=== PATIENT | female | born 1975 | race Caucasian/White ===

== ENCOUNTER 2016-12-01 04:37 | Inpatient (IN) | payer MEDICAID, OTHER ==
[~2016-12-01] VITALS: Ht 157.5 cm; Wt 49.0 kg
[2016-12-01] MEDS ORDERED: No home meds (12:03)
[2016-12-01] MEDS ORDERED: OMEG-38 PO (12:09)
[2016-12-01] MEDS ORDERED: IRON1TAB97 PO (12:09)
--- NOTE | 2016-12-01 14:02 | NUR ---
Nursing Admission Note: Patient arrived on unit at 1115 escorted by EMS and security. Ambulated from the gurney onto the unit with a steady gait. HENRIQUE'd 72 hour hold yesterday evening as gravely disabled and a danger to self in [place] at [facility]. C/O hearing voices most of the time and they had been increasing since her relationship with her boyfriend ended 3 weeks ago. She then moved from [place] to [place] looking for a job on a [place]. Has been staying in the prison. States "the voices are very critical and are keeping me from getting the job." Patient brought herself to the hospital because of SI and a plan to jump into the ocean or slit her wrists per long-term paperwork. Cooperative with admission process. Given a tour of the unit. Ate well at lunch. Pleasant with staff. Will monitor mood and behavior.
[2016-12-01] MEDS ORDERED: Magnesium Hydroxide 10 mL Oral Concentration PO PRN (14:15)
[2016-12-01] MEDS ORDERED: Benzocaine-Menthol Lozenge 2/Pkg PO PRN (14:15)
[2016-12-01] MEDS ORDERED: Alum-Mag Hydrox-Simeth 30 mL Suspension PO PRN (14:15)
[2016-12-01] MEDS: LORazepam 1 mg Tablet PO PRN ×2 (14:22→18:28)
[2016-12-01] MEDS ORDERED: Influenza (Adult) Vaccine 0.5 mL Syringe IM ONE (14:55)
--- NOTE | 2016-12-01 18:29 | NUR ---
Nurses PRN Patient requested and received Ativan 1mg for increasing anxiety and wanting to rest,will assess response.
--- NOTE | 2016-12-01 18:31 | NUR ---
[facility] Day Shift Pt admitted to the unit at approx 11:15. Pt completed the admission process without incident. Pt appears to have acclimated to the unit comfortably. Pt spends most of the shift reading/resting in her room, interacting with peers or drawing/writing in the dining room, and participating in unit activities. Pt is pleasant and appropriate with staff and peers when active on the unit. Pt requested that her clothes be laundered, which was accomplished without incident. Pt attended lunch and dinner and ate approx 90% of both meals.
--- NOTE | 2016-12-02 05:46 | NUR ---
Nursing Note 7pm to 7am Pt power walking on unit at start of shift. Went to sleep at approximately 2000, did not join peers for movie. No interaction with this automatic typewriter inspector. Pt OOB at 0300 for 20 minutes and went back to bed. Sleep for remainder of shift uninterrupted.
--- NOTE | 2016-12-02 06:34 | NUR ---
Pt woke up at 0636 requesting a prn for intensifying auditory hallucinations. "Pt stated I have been trying to ignore them but I can't. I hear my mothers voice talking to a man".Pt had no prn antipsychotics available so was given vistaril 50mg.
[2016-12-02] MEDS: LORazepam 1 mg Tablet PO PRN ×2 (08:39→12:22)
--- NOTE | 2016-12-02 11:51 | HP ---
[address] [address] HISTORY AND PHYSICAL PATIENT: SARAH SINGER : 1975 MR#: [id number] ADMIT: 12/01/2016 JOB ID: [id number] IDENTIFICATION: The patient is a 41-year-old white female, currently single and homeless. 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 She broke up with her boyfriend and traveled from [place] to [place]. REASON FOR ADMISSION: Client detained on a 72 hour hold as gravely disabled after presenting to the [facility] complaining of suicidal ideation with a plan to drown herself or cut her wrists. She stated she was having auditory hallucinations of a derogatory nature. HISTORY OF PRESENT ILLNESS: Client presents for evaluation and treatment of suicidal ideation and psychosis. Met with her for a 60 minute evaluation and reviewed course and records kept by [facility] and [place] or [facility]. Her main issue is suicidal ideation and a plan to cut her wrists or drown herself. She describes symptoms of depression for the past several years and now auditory hallucinations of 40 different voices of a derogatory nature whispering in the back of her head at a near constant level. It appears that she was overwhelmed by current stressful events relating to finances, breakup with her boyfriend and recently stopping alcohol, methamphetamine and narcotics reportedly six weeks ago. Now that she is sober, she is having a difficult time with symptoms of depression and auditory hallucinations. The patient believes that she is depressed and needs medications. At present, she is reporting symptoms of a major depression including poor sleep, interest, energy, concentration and now suicidal ideation. She is reporting derogatory auditory hallucinations. She denied symptoms of reji or trauma. She reports that she has been sober from methamphetamine narcotics and alcohol for the past six weeks. PAST MEDICAL HISTORY: MEDICATIONS: None. ALLERGIES: None. ILLNESSES: None. FAMILY MEDICAL HISTORY: Noncontributory. PAST PSYCHIATRIC HISTORY: Client has never been on an inpatient psych unit. She has never seen a psychiatrist, and she has never been on psychiatric medications. PSYCHOSOCIAL HISTORY: Born [facility] and raised there from 0-17. She graduated from high school and has lived and worked as an artist in [place] and in the [facility]. HISTORY OF TRAUMA: Client denies. DRUG AND ALCOHOL USE: Client states she has struggled with alcohol, methamphetamine and narcotics. She states she has never taken anything IV. Her alcohol of choice is peach vodka. She states she can drink up to half a 5th of alcohol a day if she starts early and she has been using from age 19 until age 41. LETHALITY: Client reports suicide attempt by overdosing on NyQuil in 2016 and recent suicidal ideation. She continues to have suicidal ideation. RELATIONSHIP HISTORY: Client has never been . She has one 21-year-old son. JAINISM: "I don't like to talk about it." LEGAL HISTORY: Client denies. PHYSICAL EXAMINATION: Normal gait. Normal balance. Vital signs within normal limits. MENTAL STATUS EXAMINATION: Client neatly and stylishly dressed. Good eye contact. Speech normal rate and rhythm. Mood is depressed. Affect is congruent with no emotional liability and appears bright. Behavior was calm. Thought process is logical and goal oriented. Thought content: Client complaining of auditory hallucinations on a near constant level. She shows no evidence of flight of ideas, loosening of associations or thought disorganization. She is complaining of suicidal ideation with an intent to drown herself or cut on her wrists. She is alert and oriented to person, place and date. Immediate, short, and long-term memory intact. Attention, insight and judgment are fair. Impulse control highly contained. Reality testing is impaired. Competence to handle current stressors is currently being overwhelmed. 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 She recently had a traumatic breakup with her boyfriend. Has stopped using alcohol, methamphetamine and narcotics for the past six weeks and is trying to recreate her life. She moved from [place], [place] to [place] over the past week hoping to restart her life. In the meantime, she has multiple symptoms of a major depression with psychosis. She has not previously been on medication and I reviewed relative risks, benefits and side effects of a combination of an antidepressant, antianxiety agent and an antipsychotic to target potential major depressive disorder. Although client denies a history of trauma, her symptoms seemed to be more related to PTSD. I am unable to verify the degree of her substance use although she does state she is able to drink up to a fifth of hard liquor a day. At this time client is unable to come up with a safety plan and would like a trial of therapy and psychiatric medications before returning to [place]. DIAGNOSIS: AXIS I 1. Preliminary major depressive disorder with psychosis, rule out substance induced psychosis, methamphetamine, narcotics and alcohol, rule out posttraumatic stress disorder. 2. Recent history of alcohol, methamphetamine and narcotic abuse. AXIS II Defer. AXIS III None. AXIS IV Moderate. AXIS V Current global assessment of functioning equal to 35. PLAN: Recommend client be admitted to our unit and be provided with a high degree of safety through the structure and active adult engagement she will receive here. Will have her participate in one-to-one unit and group activities focused on improving coping skills, reality based thinking and helping her come up with a safety plan should suicidal ideation return as an outpatient. Will start client on a combination of medications, Prozac 20 in the morning, Xanax 0.25 mg t.i.d. and Zyprexa 10 mg at night. Anticipate 5-7 day stay.
[2016-12-02] MEDS: ALPRAZolam 0.25 mg Tablet PO SCH ×2 (13:58→20:20)
--- NOTE | 2016-12-02 18:03 | NUR ---
Nursing Dayshift: S: "The voices are muffled and in the background." O: Patient acknowledging AH and denies VH. Anxiety "a lot better" at 04/23. Has had Ativan 1 mg PO twice for increased anxiety at 0839 and 1222 with patient verbalizing effective relief. New order for Xanax 0.25 mg PO TID received with 1st dose given at 1358. Depression "I'm compartmentalizing. I've got all of my worries in a box so they can't bother me right now." Denies harmful thoughts. Has had a good appetite at meals. Attending group activities. Social with peers. Coloring in the afternoon and evening. Napped for a couple hours this afternoon. A: Med compliant. Pleasant on approach. P: CPOC. Monitor mood and behavior.
--- NOTE | 2016-12-02 18:32 | NUR ---
Observations [id number] Pt was asleep upon start of shift. She attended all meals, eating 100%. She did attend groups and Community Meeting. Pt is friendly with peers and staff, but presents as flat and guarded. She spent much of her time sleeping in her room, reading, coloring and used the phone. Pt's mother called in the evening, in which the pt did not want to talk with her or have us acknowledge that she was here, although she had called her mother earlier in the day. She watched a movie with peers in the evening. Pt was observed every 15 minutes of shift as directed.
[2016-12-02] MEDS: Zolpidem 5 mg Tablet for FEMALE or >65YO PO PRN (20:20)
--- NOTE | 2016-12-03 05:15 | NUR ---
Nursing Note 7pm to 7am Pt visible in common area watching tv at start of shift. She requested her sleep medicine stating " I have been up all day and am very tired". Informed pt that she could have her medication at 1999 and was accepting of this. Pt received ambien for sleep and went to bed at 2014. Pt slept through the night uninterrupted. Monitored pt q 15 minutes for safety and location.
[2016-12-03] MEDS: ALPRAZolam 0.25 mg Tablet PO SCH ×3 (07:52→20:02)
[2016-12-03 09:00] VITALS: BP 111/74; PULSE 82; RESP 17
--- NOTE | 2016-12-03 11:34 | PCM.PNPSY ---
Subjective Date of Service Dec 03, 2016 Subjective I spent 30 minutes both reviewing treatment plan and providing supportive/ educational psychotherapy. I spent more than 50% of the time counseling the patient. I reviewed the treatment plan with the patient and discussed options available including the potential risks, benefits and side effects. Latisha reports a slight improvement in mood stability. Staff reports that she has been active and participating well in one-to-one unit and group activities. She slept 8 hours and reports a decrease in intensity of suicidal ideation and a decrease in the intensity of internal stimulation from derogatory auditory hallucinations symptoms review. She denies medication side effects. Patient was able to identify her medications and what they were used to treat. She appeared to understand the need for medications by the questions she asked during our discussion. Current Medications Current Medications Alprazolam 0.25 mg TID PO Last administered on 12/03/16 07:52; Admin Dose 0.25 MG; Start 12/02/16 at 14:30 Fluoxetine HCl 20 mg DAILY PO Last administered on 12/03/16 07:52; Admin Dose 20 MG; Start 12/02/16 at 11:10 Hydroxyzine Pamoate 50 mg Q4H PRN PO Last administered on 12/02/16 11:27; Admin Dose 50 MG; Start 12/01/16 at 14:15 Influenza Virus Vaccine 0.5 ml ONCE ONCE IM Last administered on 12/01/16 15:22 ; Admin Dose 0.5 ML; Start 12/01/16 at 14:55; Stop 12/01/16 at 14:56; Status DC Lorazepam 1 mg Q4H PRN PO Last administered on 12/02/16 12:22; Admin Dose 1 MG ; Start 12/01/16 at 14:15 Nicotine Polacrilex 2 mg Q4H PRN PO Last administered on 12/03/16 07:23; Admin Dose 2 MG; Start 12/01/16 at 14:15 Olanzapine 5-10 MG ONCE PO Last administered on 12/01/16 18:15; Admin Dose 5 MG ; Start 12/01/16 at 18:05; Stop 12/01/16 at 19:05; Status DC Olanzapine 10 mg DAILY PO Last administered on 12/02/16 20:21; Admin Dose 10 MG ; Start 12/02/16 at 20:30 Zolpidem Tartrate 5 mg HS PRN PO Last administered on 12/02/16t 20:20; Admin Dose 5 MG; Start 12/01/16 at 14:15 Mental Status Exam Appearance: Neat/well groomed Attitude: Pleasant, Cooperative Behavior: No unusual behavior Affect: Well Modulated/Appropriate Mood: Euthymic Thought Process/Associations: Logical/Sequential, Goal Directed Speech Production: Normal Speech Rate: Normal Speech Articulation: Normal Thought Content: Appropriate Danger to Self/Suicidal Ideati: Plan, Intent Danger to Others: None Hallucinations: Auditory (Endorses) Consciousness: Alert Orientation: Person, Place, Date, Situation Memory: Grossly Intact Estimate Intellectual Function: Average Basis for IQ estimate: Awareness current events Attention/Concentration & Cogn: Grossly Intact Cognitive Testing Method: Abstract Reasoning during interview Insight: Limited Judgement: Good Mental Health Plan The patient is a 41-year-old white female, 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. She recently had a traumatic breakup with her boyfriend, stopped using alcohol, methamphetamine and narcotics for the past six weeks and is trying to recreate her life. She moved from [place], [place] to [place] over the past week hoping to restart her life. In the meantime she has developed symptoms of a major depression with psychosis. She has not previously been on medication and I reviewed relative risks, benefits and side effects of a combination of an antidepressant, antianxiety agent and an antipsychotic to target potential major depressive disorder. Although client denies a history of trauma, her symptoms seemed to be more related to PTSD. I am unable to verify the degree of her substance use although she does state she is able to drink up to a fifth of hard liquor a day. At this time client is unable to come up with a safety plan and would like a trial of therapy and psychiatric medications before returning to [place]. [place] AXIS I 1. Preliminary major depressive disorder with psychosis, rule out substance induced psychosis, methamphetamine, narcotics and alcohol, rule out posttraumatic stress disorder. 2. Recent history of alcohol, methamphetamine and narcotic abuse. AXIS II Defer. AXIS III None. AXIS IV Moderate. AXIS V Current global assessment of functioning equal to 40. Medications Treatments Patient is being provided with a high degree of safety through the structure and active adult engagement. We will focus on developing improved coping skills and identifying stressors that may have led to current episode. We will attempt to: Integrate into therapeutic groups, milieu and individual therapy. Maintain in a closely monitored and structured unit Provide low-stimulation environment Obtain collateral data to assist in treatment planning Assess degree of lability of affect and impulse control Complete safety plan Decrease frequency of relapse and need for re-hospitalization Denies thoughts of harm to self Establish a consistent sleep pattern Medication effective in stabilization of mood and/or thought process Reduce the risk of imminent harm to self by providing a safe environment Tolerates medication without side effects Patient will be on the following psychiatric medications: Zyprexa 10 at bedtime Prozac 20 daily Xanax 0.25 3 times a day Education: Educate patient about recreational drug use as an etiology Educate about metabolic etiologies related to obesity Address patient's legal status Patient is on a 72 hour involuntary treatment hold. Patient will be given the opportunity to talk to her paediatric thoracic physician and the role player Disposition: Homeless, currently identifying [place] as her home base Jv Kwan MD Dec 03, 2016 11:33
--- NOTE | 2016-12-03 18:39 | NUR ---
Nursing Dayshift: S: "The voices today are whispers. They were very loud yesterday." O: Patient has been up most of the shift. Has been coloring much of the day and writing letters. Good appetite at meals. Pleasant on approach. Verbalizes AH improving per above statement. A: Pleasant and cooperative. P: CPOC. Monitor mood and behavior.
--- NOTE | 2016-12-03 18:58 | NUR ---
Observations [id number] Pt was in dining area upon start of shift. She is friendly with staff and peers, and spent much of the day in her room or in the common area coloring. She shared that her goal is to "make lists of things she can do to be productive". Pt also shared that the "voices in my head seem to be getting louder." She also shared that at times it's very difficult for her to be around other people. Pt attended all meals, eating 100%. Pt also attended group. She was observed every 15 minutes of shift as directed.
[2016-12-03] MEDS: Zolpidem 5 mg Tablet for FEMALE or >65YO PO PRN (20:02)
--- NOTE | 2016-12-04 06:07 | NUR ---
Nursing Noc Pt presents as pleasant, bright and social on the unit. She had no complaints this evening. Took scheduled medication without difficulty. She received Ambien 5mg po prn for sleep with good effect. She participated in unit activities before retiring to her room. She has remained asleep since 2200 with no noted distress or awakening per protocol checks. Total sleep over 8 hours
[2016-12-04] MEDS: ALPRAZolam 0.25 mg Tablet PO SCH ×2 (08:06→14:23)
[2016-12-04 09:00] VITALS: BP 109/75; PULSE 83; RESP 16
--- NOTE | 2016-12-04 14:24 | PCM.PNPSY ---
Subjective Date of Service Dec 04, 2016 Subjective The patient reports that she is "feeling a little tired, having a hard time concentrating." She reports a history of auditory hallucinations beginning while she was in [place] a couple of years ago. She started using methamphetamine and developed a concern about her neighbors that they were talking about her. She reported that her auditory hallucinations would get so bad at bedtime that she would use earphones turned up loud to block them out. She reports having voices both inside and outside of her head. She reports that she experiences them in different parts of the environment, "almost like surround sound." She also reported that all the book she looked at in the library appeared to know something about the voices. She reports since taking Zyprexa, the voices have dropped to whisper and only hears two currently. Sleep: 8+ hours Appetite: Good Suicidal and homicidal ideation: Denies Auditory hallucinations: Whisper is as above Visual hallucinations: Occasional wavy lines Other Psychotic Symptoms: Some thought disorganization Anxiety: 04/23 Depression: 05/24 Current Medications Current Medications Alprazolam 0.25 mg TID PO Last administered on 12/04/16 08:06; Admin Dose 0.25 MG; Start 12/02/16 at 14:30 Olanzapine 10 mg DAILY PO Last administered on 12/04/16 08:06; Admin Dose 10 MG ; Start 12/02/16 at 20:30 Mental Status Exam Vital Signs Vital Signs Date Time Temp Pulse Resp B/P Pulse Ox O2 Delivery O2 Flow Rate FiO2 12/04/16 09:00 35.9 83 16 109/75 Appearance: Neat/well groomed Attitude: Pleasant, Cooperative Behavior: No unusual behavior, Tearful (at times) Affect: Well Modulated/Appropriate Mood: Euthymic Thought Process/Associations: Logical/Sequential, Goal Directed Speech Production: Normal Speech Rate: Normal Speech Articulation: Normal Thought Content: Appropriate, Ideas of Reference (denies current although reports past.) Danger to Self/Suicidal Ideati: None Danger to Others: None Hallucinations: Auditory (Endorses), Visual (Denies) Consciousness: Alert Orientation: Person, Place, Date, Situation Memory: Grossly Intact Estimate Intellectual Function: Average Basis for IQ estimate: Awareness current events, Word use/vocabulary Attention/Concentration & Cogn: Grossly Intact Cognitive Testing Method: Abstract Reasoning during interview Insight: Limited Judgement: Good Mental Health Plan The patient is a 41-year-old female with no reported mental health history prior to several years ago. Following using methamphetamine for approximately one year, she began developing auditory hallucinations, ideas of reference, and paranoia. She reportedly stopped using all substances 6 weeks ago. She has only recently been willing to receive treatment. According to the initial evaluation, she moved from [place], [place] to [place] over the past week hoping to restart her life. In addition to psychotic symptoms, the patient had also developed depressive symptoms and anxiety. The patient appears to be responding to antipsychotic and antidepressant treatment. The patient appears to be experiencing some fluctuation in her anxiety likely secondary to alprazolam. [place] AXIS I 1. Polysubstance use disorder with alcohol methamphetamine and narcotic use. 2. 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 Mood disorder unspecified with mixed anxiety and depression. AXIS II Defer. AXIS III None. AXIS IV Moderate. AXIS V Global assessment functioning 35 Medications Fluoxetine 20 mg daily Olanzapine 10 mg daily Alprazolam 0.25 mg 3 times a day Zolpidem 5 mg nightly when necessary insomnia Lorazepam 1 mg every 4 hours as needed for anxiety or agitation Hydroxyzine 50 mg every 4 hours as needed for anxiety or agitation. Treatments 1. The patient is admitted to the inpatient unit and will be provided a safe and secure environment. 2. The patient is denying current active suicidality and is not in need of a one-to-one at this time. He is agreeing to notify us should he have any acute suicidal or homicidal thoughts. 3. The patient is encouraged to participate with group and milieu activities. 4. The patient will be seen by the treatment team on a daily basis to assess symptoms, side effects and response to treatment. 5. Olanzapine will be changed to 5 mg twice daily and then consolidated at bedtime to reduce daytime sedation. 6. Alprazolam will be switched to clonazepam 0.5 mg twice daily to reduce anxiety fluctuation. 7. Anticipated length of stay is 7-10 days. Dakota Lujan MD Dec 04, 2016 14:24
--- NOTE | 2016-12-04 17:24 | NUR ---
Observations [id number] Pt was asleep upon start of shift. She spent much of her day working on art in the dining area. 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 Pt made a few comments about how difficult it is for her to be around other people but spent more time with peers today then observed in previous days. She mailed a post card that she made to her mother, and watched TV. She attended all meals, eating 100%. Pt did attend groups and was cooperative with staff and peers. Pt was observed every 15 minutes of shift as directed.
--- NOTE | 2016-12-04 18:01 | NUR ---
Shell Trim Operator/Counselor: S: "Everything is really convoluted at times." O: Patient slept 8+ hours last night as per staff. She denies S/I and H/I. She reports the voices are only whispers today. She reports seeing "wavy lines" at times. Depression is 8/10 and anxiety is 7/10. A: Patient is cooperative, pleasant, tearful, limited insight. P: Follow care plan, coordinate out-patient providers.
[2016-12-04] MEDS: Zolpidem 5 mg Tablet for FEMALE or >65YO PO PRN (20:19)
--- NOTE | 2016-12-04 20:54 | NUR ---
Nursing Note Lanette Pt up watching tv, socializing and working on art projects through out the shift. Pt appears superficially bright and is cooperative and pleasant with staff and peers. When asked pt stated depression and anxiety were "high" and denied SI at this time. Pt stated " the voices are telling me bad things like I shouldn't be here and I should hurt myself but they are just a whisper now, and I only hear two voices". Pt reinstated that she would be able to maintain safety on the unit. Q15 min safety checks done per protocol, Pt compliant with meds and given ambien to promote sleep. WCTM sleep, behavior, safety
--- NOTE | 2016-12-05 01:57 | NUR ---
Observations 1900 to 0700 Pt was in her room for most of the night coloring. Pt had many request for sharpie markers but was told no they are not allowed on the floor, even though someone let her earlier in the shift. pt was polite. Pt first appeared asleep at 23:15 and was observed every 15 minutes through the night.
--- NOTE | 2016-12-05 05:47 | NUR ---
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 a- no apparent distress ,reported that voices are quieter now. Pt taking medications as prescribed. p- monitor behavior/emotional state, quality, times and amount of sleep, use and effect of medication.
[2016-12-05 10:32] VITALS: BP 117/86; PULSE 76; RESP 17
--- NOTE | 2016-12-05 13:55 | PCM.PNPSY ---
Subjective Date of Service Dec 05, 2016 Subjective Patient reports "I'm pretty good... had a little voices this morning...[saying] 'You shouldn't be there... Think about what you're doing.' " Patient reports still be surprised by having voices talk back to her when she would swear in her head, or give her advice when she was in a quandary. "I felt like I was on Facebook and they were skyping my brain." Reprots sedation decreased today. No other side effects. Reports anxiety improved with switch to clonazepam. Will continue taper. Sleep: 7+ hours Appetite: Great Suicidal and homicidal ideation: Denies Auditory hallucinations: Whisper is as above Visual hallucinations: Occasional sparkles, wavy lines (history of 9-10 hits of LSD) Other Psychotic Symptoms: Mild thought disorganization Anxiety: "good" some fluctuation, yesterday 04/23 Depression: "a little bit 10", yesterday 05/24 Current Medications Current Medications Clonazepam 0.5 mg BID PO Last administered on 12/05/16 08:10; Admin Dose 0.5 MG ; Start 12/04/16 at 20:30 Olanzapine 5 mg BID PO Last administered on 12/05/16 08:10; Admin Dose 5 MG; Start 12/04/16 at 20:30 Mental Status Exam Vital Signs Vital Signs Date Time Temp Pulse Resp B/P Pulse Ox O2 Delivery O2 Flow Rate FiO2 12/05/16 10:32 35.5 76 17 117/86 Appearance: Neat/well groomed Attitude: Pleasant, Cooperative Behavior: No unusual behavior Affect: Well Modulated/Appropriate Mood: Euthymic Thought Process/Associations: Logical/Sequential, Goal Directed Speech Production: Normal Speech Rate: Normal Speech Articulation: Normal Thought Content: Appropriate, Ideas of Reference (denies current although reports past.) Danger to Self/Suicidal Ideati: None Danger to Others: None Hallucinations: Auditory (Endorses), Visual (Endorses) Consciousness: Alert Orientation: Person, Place, Date, Situation Memory: Grossly Intact Estimate Intellectual Function: Average Basis for IQ estimate: Awareness current events, Word use/vocabulary Attention/Concentration & Cogn: Grossly Intact Cognitive Testing Method: Abstract Reasoning during interview Insight: Limited Judgement: Good Mental Health Plan The patient is a 41-year-old female with no reported mental health history prior to several years ago. Following using methamphetamine for approximately one year, she began developing auditory hallucinations, ideas of reference, and paranoia. She reportedly stopped using all substances 6 weeks ago. She has only recently been willing to receive treatment. According to the initial evaluation, she moved from [place], [place] to [place] over the past week hoping to restart her life. In addition to psychotic symptoms, the patient had also developed depressive symptoms and anxiety. The patient appears to be responding to antipsychotic and antidepressant treatment. Anxiety fluctuation has improved with switch to clonazepam but will need to taper. Sedation decreased with decreased am olanzapine. [place] AXIS I 1. Polysubstance use disorder with alcohol methamphetamine and narcotic use. 2. 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 Mood disorder unspecified with mixed anxiety and depression. AXIS II Defer. AXIS III None. AXIS IV Moderate. AXIS V Global assessment functioning 35 Medications Fluoxetine 20 mg daily Olanzapine 5 mg twice daily Clonazepam 0.5 mg 2 times a day Zolpidem 5 mg nightly when necessary insomnia Lorazepam 1 mg every 4 hours as needed for anxiety or agitation Hydroxyzine 50 mg every 4 hours as needed for anxiety or agitation. Treatments 1. The patient is admitted to the inpatient unit and will be provided a safe and secure environment. 2. The patient is denying current active suicidality and is not in need of a one-to-one at this time. He is agreeing to notify us should he have any acute suicidal or homicidal thoughts. 3. The patient is encouraged to participate with group and milieu activities. 4. The patient will be seen by the treatment team on a daily basis to assess symptoms, side effects and response to treatment. 5. Olanzapine will be consolidated at bedtime to reduce daytime sedation. 6. Continue clonazepam 0.5 mg twice daily and taper over next few days. 7. Anticipated length of stay is 7-10 days. Dakota Lujan MD Dec 05, 2016 13:55 Dakota Lujan MD Dec 05, 2016 13:55
--- NOTE | 2016-12-05 14:10 | NUR ---
Observations [id number] Pt was asleep upon start of shift. She continues to spend much of her time coloring and sketching. Pt was given mini canvases today to continue to produce art. She attended community meeting, sharing that her goal is to work on job applications to get practice. She appears to be being more social with staff, and is friendly upon interaction. She attended all meals, eating 100%. Pt was observed every 15 minutes of shift as directed.
[2016-12-05] MEDS: LORazepam 1 mg Tablet PO PRN (16:08)
--- NOTE | 2016-12-05 17:47 | NUR ---
Nursing: Day shift: S: 0800 "The voices are like whispers now." At 1500, "I need some medication. The voices are so strong that I can't concentrate on the project I'm trying to do. I feel panicky. Can you take my BP?" O: PRN medication: Ativan 1 mg po at 1600 for anxiety. BP 132/70. At 1800, pt states that it helped her with the voices and feeling of panic. Latisha is groomed neatly. She has been self-directed with art activities most of shift. Pleasant on approach. Makes conversation readily and attempts to engage peers. Denies depression or suicidality. A: Aware of ongoing AH. P: Assess for need effectiveness of current med regimen. Addendum: 12/05/16 at 1800 by WILLEM HOLGUIN RN Amended: Links added.
--- NOTE | 2016-12-05 18:05 | NUR ---
Rn X Ray/Counselor: S: "I'm doing good today." O: Patient slept 7+ hours last night as per staff. She denies S/I and H/I. She states the voices arw quieter today. She reports seeing "sparkles" throughout the day. Depression is 8/10 and anxiety is "not as bad." Patient stated, "I felt people were getting on Facebook and skyping my brain." A: Patient is cooperative, pleasant, euthymic, limited judgment. P: Follow care plan, coordinate out-patient providers.
[2016-12-05] MEDS: Zolpidem 5 mg Tablet for FEMALE or >65YO PO PRN (20:19)
--- NOTE | 2016-12-06 01:06 | NUR ---
Observations 1900 to 0700 Pt was in her room for most of the night coloring. Pt had a few request for sharpie markers again but was told no they are not allowed on the floor, even though someone let her earlier in the shift. pt was polite. Pt first appeared asleep at 22:45 and was observed every 15 minutes through the night.
[2016-12-06] MEDS: LORazepam 1 mg Tablet PO PRN ×3 (05:16→18:44)
--- NOTE | 2016-12-06 05:31 | NUR ---
Nursing Note [id number] Pt in milieu upon arrival to unit. Pt noted engaging in activities and attending groups.Pt behavior cooperative and polite with staff and peers. Pt affect bright and cheerful and thought process organized with good insight into MH condition. Pt denied SI and stated the voice she was hearing was her "mothers" Pt denied anxiety and depression at that time. Pt given Ambien at 2019 with noted sleep time of 2245 with 6 hr uninterrupted sleep. Q15 min safety checks done per protocol. Pt currently up in [facility] watching morning news. Ativan 1mg given for anxiety r/t "hearing the voice of her mother". WCTM sleep, behavior, safety
[2016-12-06] MEDS: Omega-3 Fatty Acids 1,000 mg Capsule PO SCH (08:11)
[2016-12-06 12:17] VITALS: BP 135/83; PULSE 68; RESP 16
--- NOTE | 2016-12-06 15:25 | PCM.PNPSY ---
Subjective Date of Service Dec 06, 2016 Subjective Patient reports mood is "pretty good" but that her voices were somewhat increased this morning, but only for a total of 45 minutes today with 4 different voices. This is overall approximately 90% reduction per patient. She would prefer to go back to split dosing of olanzapine despite the mild sedation as the AH were decreased. Patient reports her certificate is on the way. She is needing a list of women's shelters in [place] and [place]. She reported transient increased anxiety when she saw triggers that reminded her of her parents or songs related to events. Sleep: 6.5+ hours Appetite: "Great" Suicidal and homicidal ideation: Denies Auditory hallucinations: as above Visual hallucinations: minimal today Other Psychotic Symptoms: Mild thought disorganization Anxiety: "good" some fluctuation with 8-9/10 briefly Depression: "pretty hopeful" Current Medications Current Medications Clonazepam 0.5 mg BID PO Last administered on 12/06/16 08:11; Admin Dose 0.5 MG ; Start 12/04/16 at 20:30; Stop 12/06/16 at 13:43; Status DC Multivitamins/ Minerals Therapeutic 1 tablet DAILY PO Last administered on 08:11; Admin Dose 1 TABLET; Start 12/05/16 at 13:50 Olanzapine 5 mg BID PO Last administered on 12/05/16 20:20; Admin Dose 5 MG; Start 12/04/16 at 20:30; Stop 12/05/16 at 20:31; Status DC Olanzapine 5 mg BID PO Last administered on 12/06/16 14:40; Admin Dose 5 MG; Start 12/06/16 at 13:40 Mental Status Exam Vital Signs Vital Signs Date Time Temp Pulse Resp B/P Pulse Ox O2 Delivery O2 Flow Rate FiO2 12/06/16 12:17 35.8 68 16 135/83 Appearance: Neat/well groomed Attitude: Pleasant, Cooperative Behavior: No unusual behavior Affect: Well Modulated/Appropriate Mood: Euthymic Thought Process/Associations: Logical/Sequential, Goal Directed Speech Production: Normal Speech Rate: Normal Speech Articulation: Normal Thought Content: Appropriate Danger to Self/Suicidal Ideati: None Danger to Others: None Hallucinations: Auditory (Endorses), Visual (Minimal) Consciousness: Alert Orientation: Person, Place, Date, Situation Memory: Grossly Intact Estimate Intellectual Function: Average Basis for IQ estimate: Awareness current events, Word use/vocabulary Attention/Concentration & Cogn: Grossly Intact Cognitive Testing Method: Abstract Reasoning during interview Insight: Good Judgement: Good Mental Health Plan The patient is a 41-year-old female with no reported mental health history prior to several years ago. Following using methamphetamine for approximately one year, she began developing auditory hallucinations, ideas of reference, and paranoia. She reportedly stopped using all substances 6 weeks ago. She has only recently been willing to receive treatment. According to the initial evaluation, she moved from [place], [place] to [place] over the past week hoping to restart her life. In addition to psychotic symptoms, the patient had also developed depressive symptoms and anxiety. The patient appears to be responding to antipsychotic and antidepressant treatment. Anxiety fluctuation has improved with switch to clonazepam but will need to taper and will switch to PRN. Sedation decreased with decreased am olanzapine but reporting increase in AH and requests return to BID dosing. [place] AXIS I 1. Polysubstance use disorder with alcohol methamphetamine and narcotic use. 2. 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 Mood disorder unspecified with mixed anxiety and depression. AXIS II Defer. AXIS III None. AXIS IV Moderate. AXIS V Global assessment functioning 35 Medications Fluoxetine 20 mg daily Olanzapine 10 mg nightly Clonazepam 0.5 mg 2 times a day Zolpidem 5 mg nightly when necessary insomnia Lorazepam 1 mg every 4 hours as needed for anxiety or agitation Hydroxyzine 50 mg every 4 hours as needed for anxiety or agitation. Treatments 1. The patient is admitted to the inpatient unit and will be provided a safe and secure environment. 2. The patient is denying current active suicidality and is not in need of a one-to-one at this time. He is agreeing to notify us should he have any acute suicidal or homicidal thoughts. 3. The patient is encouraged to participate with group and milieu activities. 4. The patient will be seen by the treatment team on a daily basis to assess symptoms, side effects and response to treatment. 5. Olanzapine will be switched back to 5mg bid dosing. 6. Change clonazepam to 0.5 mg twice daily as needed. 7. Vit D 1000IU daily due to low vit D levels 8. Will need outpatient f/u regarding low T4 9. Anticipated length of stay is 7-10 days. Dakota Lujan MD Dec 06, 2016 15:25
--- NOTE | 2016-12-06 18:12 | NUR ---
Nursing: day shift: S: I spoke to two ex-boyfriends today. That made it a hard day. O: Similarly to yesterday, Latisha was bright and denying AH except for "whispers" at 0800. Was directing peers in working on a puzzle. By 1100, she was requesting something for "the voices." Received Vistaril 50 mg at 1153 without relief at 1230 assessment. Received Ativan one mg at 1242 with only mild relief by 1400. After meeting with Doctor she received Zyprexa 5 mg at 1440 as first dose of BID scheduled Zyprexa. At 1750, she requested that she receive HS meds and "Just go to sleep" She accepted Clonazepam 0.5 mg PRN at 1755 for anxiety that she rated at 7/10. A: AH symptom still distressing Latisha and affecting her anxiety level. P: Continue to assess for effectiveness of med changes. Addendum: 12/06/16 at 1823 by WILLEM HOLGUIN RN Amended: Links added.
[2016-12-06] MEDS: Zolpidem 5 mg Tablet for FEMALE or >65YO PO PRN (20:23)
--- NOTE | 2016-12-07 04:48 | NUR ---
Nursing Note [id number] Pt up in milieu upon arrival to unit. Pt spent most of shift working on art projects in room. Pt c/t have a bright affect with cooperative and polite behavior. Pt given Ativan 1mg at 1844 for anxiety r/t increased voices. Upon reassessment pt stated the voices had diminished but were still present. Pt denied SI at that time. Pt was compliant with HS meds and was given Ambien 5mg at 2022. Ambien was not affective and Pt given Vistaril 50mg at 2339. Pt noted asleep at 2400. Pt had 5 hr uninterrupted sleep before waking up at 0500 for water. Q15 min safety checks done per protocol, no distress noted. WCTM sleep, behavior, safety
[2016-12-07] MEDS: Omega-3 Fatty Acids 1,000 mg Capsule PO SCH (08:02)
[2016-12-07 10:35] VITALS: BP 131/74; PULSE 85; RESP 16
--- NOTE | 2016-12-07 13:51 | PCM.PNPSY ---
Subjective Date of Service Dec 07, 2016 Subjective The patient reported increased voices after talking to her brother on the phone but have since calmed after olanzapine and hydroxyzine. Patient is working on getting into a fdc and getting a job on discharge. Overall, she reports a decrease in auditory hallucinations, but still experienced 30 minutes of increased auditory hallucinations after phone call this am. Patient agreeable to trying to see whether she needs an additional dose of olanzapine during the day before prescribing on a routine basis. Patient also c/o left ear decreased hearing; on physical exam, heave wax buildup obscuring TM. Right TM WNL. No side effect complaints. Sleep: 6+ hours Appetite: "Good" Suicidal and homicidal ideation: Denies Auditory hallucinations: "mean" after phone call x 30 mins Visual hallucinations: "a little white spots" Other Psychotic Symptoms: N/A Anxiety: 04/23 now, this am 12/22, after phone call 05/24. Depression: "a little sad" Current Medications Current Medications Cholecalciferol 1,000 unit DAILY PO Last administered on 12/07/16 08:03; Admin Dose 1,000 UNIT; Start 12/06/16 at 13:40 Clonazepam 0.5 mg BID PRN PO Last administered on 12/07/16 12:03; Admin Dose 0.5 MG; Start 12/06/16 at 13:45 Multivitamins/ Minerals Therapeutic 1 tablet DAILY PO Last administered on 08:03; Admin Dose 1 TABLET; Start 12/05/16 at 13:50 Olanzapine 5 mg BID PO Last administered on 12/07/16 08:03; Admin Dose 5 MG; Start 12/06/16 at 13:40 Mental Status Exam Vital Signs Vital Signs Date Time Temp Pulse Resp B/P Pulse Ox O2 Delivery O2 Flow Rate FiO2 12/07/16 10:35 36.5 85 16 131/74 Appearance: Neat/well groomed Attitude: Pleasant, Cooperative Behavior: No unusual behavior Affect: Well Modulated/Appropriate Mood: Euthymic Thought Process/Associations: Logical/Sequential, Goal Directed Speech Production: Normal Speech Rate: Normal Speech Articulation: Normal Thought Content: Appropriate Danger to Self/Suicidal Ideati: None Danger to Others: None Hallucinations: Auditory (Endorses), Visual (Minimal) Consciousness: Alert Orientation: Person, Place, Date, Situation Memory: Grossly Intact Estimate Intellectual Function: Average Basis for IQ estimate: Awareness current events, Word use/vocabulary Attention/Concentration & Cogn: Grossly Intact Cognitive Testing Method: Abstract Reasoning during interview Insight: Good Judgement: Good Mental Health Plan The patient is a 41-year-old female with no reported mental health history prior to several years ago. Following using methamphetamine for approximately one year, she began developing auditory hallucinations, ideas of reference, and paranoia. She reportedly stopped using all substances 6 weeks ago. She has only recently been willing to receive treatment. According to the initial evaluation, she moved from [place], [place] to [place] over the past week hoping to restart her life. In addition to psychotic symptoms, the patient had also developed depressive symptoms and anxiety. The patient appears to be responding to antipsychotic and antidepressant treatment. Anxiety fluctuation improved with switch to clonazepam but has had increased use of lorazepam. Patient concerned about ongoing auditory hallucinations and was agreeable to a trial of as needed daytime olanzapine. Left ear ceruminosis as noted above. [place] AXIS I 1. Polysubstance use disorder with alcohol methamphetamine and narcotic use. 2. 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 Mood disorder unspecified with mixed anxiety and depression. AXIS II Defer. AXIS III None. AXIS IV Moderate. AXIS V Global assessment functioning 35 Medications Fluoxetine 20 mg daily Olanzapine 5 mg twice daily Clonazepam 0.5 mg 2 times a day as needed Zolpidem 5 mg nightly when necessary insomnia Lorazepam 1mg po q 4h prn anxiety/agitation Hydroxyzine 50 mg every 4 hours as needed for anxiety or agitation. Treatments 1. The patient is admitted to the inpatient unit and will be provided a safe and secure environment. 2. The patient is denying current active suicidality and is not in need of a one-to-one at this time. He is agreeing to notify us should he have any acute suicidal or homicidal thoughts. 3. The patient is encouraged to participate with group and milieu activities. 4. The patient will be seen by the treatment team on a daily basis to assess symptoms, side effects and response to treatment. 5. Olanzapine 5mg once daily as needed for hallucinations will be added to determine total daily need. 6. Clonazepam 0.5 mg twice daily as needed. 7. Vit D 1000IU daily due to low vit D levels 8. Will need outpatient f/u regarding low T4 and prior normal TSH 1.31 on at . 9. Will discontinue lorazepam and encourage hydroxyzine use. 10. Debrox 10 drops left ear bid x 4 days 11. Anticipated length of stay is 3-5 days. Dakota Lujan MD Dec 07, 2016 13:51
--- NOTE | 2016-12-07 18:26 | NUR ---
Nursing Dayshift: S: "Do I have anything left for anxiety?" O: Patient requesting clonazepam for increased anxiety at noon and 1742 this evening. Moderate effectiveness reported by patient. Hydroxyzine given twice for c/o anxiety at 1022 and 1845 with moderate effectiveness per patient. Received Zyprexa 10 mg at 1504 after a phone call with her brother. Patient c/o increased voices at the time. Voices effectiveness. Good appetite at meal. Attending unit activities. A: Pleasant on approach. Med compliant. P: CPOC. Monitor mood and behavior.
--- NOTE | 2016-12-07 18:41 | NUR ---
Care Clinician/Counselor: S: "I'm making phone calls for shelters in [place]." O: Patient slept 6 hours last night as per staff. She denies S/I and H/I. She reports that she talked to her brother earlier this morning on the phone and the voices didn't get loud until after she hung up the phone. She reports seeing "white spots." Depression is 0/10 and anxiety is 7/10. A: Patient is cooperative, hopeful, euthymic, anxious. P: Follow care plan, coordinate out-patient providers.
--- NOTE | 2016-12-07 18:48 | NUR ---
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 Patient appeared hypomanic at the above time. She was very disorganized, showing staff her piles of paper but unable to express in a linear fashion what each meant. Patient was pressured in speech but was bright and friendly with staff and with peers. She was actively engaged in a group about journaling and eventually asked questions and had an unofficial group about the brain and the mechanisms involved in mental health. Patient was insightful and future oriented. She denies any suicidal or homicidal ideation or thought disturbances.
[2016-12-07] MEDS: Zolpidem 5 mg Tablet for FEMALE or >65YO PO PRN (20:05)
--- NOTE | 2016-12-08 05:21 | NUR ---
Nursing Noc Pt appeared to sleep from [id number], presents pleasant slightly hypomanic and flirtatious. Reports medication effective for voices which slight whisper reported after speaking with brother on evening shift. Continuing to monitor mood, behavior,emotional state and medications. CP
[2016-12-08] MEDS: Omega-3 Fatty Acids 1,000 mg Capsule PO SCH (07:38)
[2016-12-08 13:37] VITALS: BP 111/75; PULSE 89; RESP 16
--- NOTE | 2016-12-08 14:07 | NUR ---
Nursing Day Shift- S- "The medications are really helping. now instead of hearing 15 people yelling that I'm a terrible person, they are a soft whisper. Can I get a Klonopin? What medications are you giving me?" O- Pt. was awake for breakfast. She had slept well per report. She took her medications and wrote down the names. She was able to confirm the medications indications. Pt. reported decreased auditory hallucination volume. She was bright and gracious. Pt. was given PRN Klonopin 0.5 mg at 1215 for increased anxiety. A- Auditory hallucinations. Childlike and vulnerable presentation. P- Cont. BHTP.
--- NOTE | 2016-12-08 14:41 | PCM.PNPSY ---
Subjective Date of Service Dec 08, 2016 Subjective The patient reports increased voices waking her up at 4am. She reports trying to black them out by keeping occupied. She reports only hearing 2 voices. Despite this report, she reports they are much improved. Patient reported increased anxiety secondary to auditory hallucinations and was advised to use Vistaril. No side effect complaints. Sleep: 6+ hours, "really well until 4pm" Appetite: "eating tons" Suicidal and homicidal ideation: Denies Auditory hallucinations: as above Visual hallucinations: denies Other Psychotic Symptoms: N/A Anxiety: "a little from the voices." Depression: "a little down" Current Medications Current Medications Carbamide Peroxide 10 drop BID LEFT_EAR Last administered on 12/08/16 07:38; Admin Dose 10 DROP; Start 12/07/16 at 13:30; Stop 12/10/16 at 20:31 Olanzapine 5 mg DAILY PRN PO Last administered on 12/07/16 15:04; Admin Dose 5 MG; Start 12/07/16 at 13:30 Mental Status Exam Vital Signs Vital Signs Date Time Temp Pulse Resp B/P Pulse Ox O2 Delivery O2 Flow Rate FiO2 12/08/16 13:37 36.3 89 16 111/75 Appearance: Neat/well groomed Attitude: Pleasant, Cooperative Behavior: No unusual behavior Affect: Well Modulated/Appropriate Mood: Euthymic Thought Process/Associations: Logical/Sequential, Goal Directed Speech Production: Normal Speech Rate: Normal Speech Articulation: Normal Thought Content: Appropriate Danger to Self/Suicidal Ideati: None Danger to Others: None Hallucinations: Auditory (Endorses), Visual (Denies) Consciousness: Alert Orientation: Person, Place, Date, Situation Memory: Grossly Intact Estimate Intellectual Function: Average Basis for IQ estimate: Awareness current events, Word use/vocabulary Attention/Concentration & Cogn: Grossly Intact Cognitive Testing Method: Abstract Reasoning during interview Insight: Good Judgement: Good Mental Health Plan The patient is a 41-year-old female with no reported mental health history prior to several years ago. Following using methamphetamine for approximately one year, she began developing auditory hallucinations, ideas of reference, and paranoia. She reportedly stopped using all substances 6 weeks ago. She has only recently been willing to receive treatment. According to the initial evaluation, she moved from [place], [place] to [place] over the past week hoping to restart her life. In addition to psychotic symptoms, the patient had also developed depressive symptoms and anxiety. The patient appears to be responding to antipsychotic and antidepressant treatment and is willing to increase olanzapine to better address hallucinations. She is encouraged to use hydroxyzine for anxiety. [place] AXIS I 1. Polysubstance use disorder with alcohol methamphetamine and narcotic use. 2. 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 Mood disorder unspecified with mixed anxiety and depression. AXIS II Defer. AXIS III None. AXIS IV Moderate. AXIS V Global assessment functioning 35 Medications Fluoxetine 20 mg daily Olanzapine 5 mg twice daily Clonazepam 0.5 mg 2 times a day as needed Zolpidem 5 mg nightly when necessary insomnia Lorazepam 1mg po q 4h prn anxiety/agitation Hydroxyzine 50 mg every 4 hours as needed for anxiety or agitation. Treatments 1. The patient is admitted to the inpatient unit and will be provided a safe and secure environment. 2. The patient is denying current active suicidality and is not in need of a one-to-one at this time. 3. The patient is encouraged to participate with group and milieu activities. 4. The patient will be seen by the treatment team on a daily basis to assess symptoms, side effects and response to treatment. 5. Olanzapine 5mg once daily as needed for hallucinations will be added to determine total daily need. 6. Increase olanzapine to 5mg daily and 10mg nightly 7. Clonazepam 0.5 mg twice daily as needed. 8. Vit D 1000IU daily due to low vit D levels 9. Will need outpatient f/u regarding low T4 and prior normal TSH 1.31 on at . 10. Will discontinue lorazepam and encourage hydroxyzine use. 11. Debrox 10 drops left ear bid x 4 days 12. Anticipated length of stay is 3-5 days. Dakota Lujan MD Dec 08, 2016 14:41
--- NOTE | 2016-12-08 16:48 | NUR ---
Sales And Merchandising Representative/Counselor: S: "I slept really well until 4:00am." O: Patient slept 6+ hours last night as per staff. She denies S/I and H/I. She reports that the voices are "improving." She denies visual hallucinations. Depression is "a little down" and anxiety is "a little , from the voices." A: Patient is cooperative, pleasant, euthymic. P: Follow care plan, coordinate out-patient providers.
[2016-12-08] MEDS: Zolpidem 5 mg Tablet for FEMALE or >65YO PO PRN (19:59)
--- NOTE | 2016-12-08 20:01 | NUR ---
Observations 0900 to 1930 Pt affect and mood was overly bright, friendly, and social. Pt speech was rambling and hyperverbal and eye contact was good. Pt attended both groups and unit activities. Pt was social with staff and peers when approached. Pt worked on art and wrote some letters during free time. Pt attended meals in [facility]. and ate 100% of her meals. Pt maintained behavior throughout the shift. Pt was polite, pleasant and cooperative. Pt used the phone several times. Pt was observed every 15 minutes throughout the shift as ordered. Staff will continue to monitor and support.
--- NOTE | 2016-12-08 22:04 | NUR ---
Evening shift 3pm to 11pm Pt animated this evening and slightly hyperactive. Social with peers and participated in unit activities. Affect and mood bright which was incongruent with reports of anxiety over increasing auditory hallucinations. Pt reports that voices tend to increase when she is doing solitary activities such as reading. Given Vistaril and Zyprexa PRN with good relief.
--- NOTE | 2016-12-09 04:27 | NUR ---
Nursing Note Noc Pt asleep upon arrival to unit. Pt noted sleep time 2215 with 6 hr uninterrupted sleep. Q15 min safety checks done per protocol, no distress noted. Pt up at 0415 requesting Klonopin. Pt affect bright. Pt returned to room and is currently resting. WCTM sleep, safety, behavior
--- NOTE | 2016-12-09 05:41 | NUR ---
Pt out on unit most of shift interacting, drawing, participating in group and watching TV. Asleep at 2215-415. Pt observed every 15 minutes as ordered.
[2016-12-09] MEDS: Omega-3 Fatty Acids 1,000 mg Capsule PO SCH (06:51)
[2016-12-09 10:20] VITALS: BP 131/92; PULSE 86; RESP 16
--- NOTE | 2016-12-09 13:10 | NUR ---
Nursing Day Shift- S- "Can I get something for anxiety? I spoke with my mother and it really set me off. I had a Klonopin at 4 carlos. is it to soon?" (At 0800 today.) O- Pt. was awake at the start of the day shift. She reported having woken at 4 something, taken a Klonopin, then returned to sleep for an hour. The Pt. was encouraged to attempt alternative relaxation techniques or try Vistaril. Pt. rated her anxiety as 7/10. She denied intrusive auditory hallucinations. It was explained to the Pt. that the Klonopin was ordered as 2 doses per day. She was firm on wanting to take the 2nd dose at that time, and it was given. Pt. has remained awake and active on the unit. She denied thoughts of self harm. A-Anxiety. Reported history of being clean and sober from methamphetamine for 6 weeks. Seeking Klonopin and an increase in Ambien. P- Cont. to educate about addictive qualities of benzodiazepines, and alternative stress management techniques. Cont. BHTP.
--- NOTE | 2016-12-09 16:26 | NUR ---
Manager Material./ c.m. S.:"Voices are a little louder every day... My attention is so bad!" O.: met with pt. and MD together in the middle of the morning. She was ready to work on her art project but she agreed to talk to MD and senior medical writer. She had broken sleep last night. She complained about a lot of anxiety that effects her sleep. She complained about short attention span. She denied SI/HI, denied VH. She said that AH were "just 2 or 3 voices and they are quiet and muffled." She reported getting messages from books - "It's like being in a video-game." discussed meds with her and she agreed to start a new medication today. She spent a lot of time in a public area doing craft or talking to peers. A.: pt. is cooperative, pleasant, confused, paranoid and delusional, internally preoccupied. She is social with peers and staff. P.: monitor behavior, monitor meds intake; follow care plan.
--- NOTE | 2016-12-09 19:08 | PCM.PNPSY ---
Subjective Date of Service Dec 09, 2016 Subjective Patient reports that she feels that her anxiety is getting worse over time rather than getting better. She reports having some increase in auditory hallucinations after speaking with her mother. She does report that there are only 2-3 voices which is a significant improvement. Reports difficulty sleeping at night. Discussed starting melatonin, and patient was agreeable. Sleep: 6 hours Appetite: Excellent Suicidal and homicidal ideation: denies Auditory hallucinations: quite, muffled Visual hallucinations: denies Other Psychotic Symptoms: N/A Anxiety: 04/23 Depression: 04/23 Current Medications Current Medications Escitalopram Oxalate 5 mg ONCE ONCE PO Last administered on 12/09/16 12:21; Admin Dose 5 MG; Start 12/09/16 at 11:10; Stop 12/09/16 at 11:11; Status DC Olanzapine 5 mg DAILY PO Last administered on 12/09/16 06:53; Admin Dose 5 MG; Start 12/09/16 at 08:30 Olanzapine 10 mg HS PO Last administered on 12/08/16 20:51; Admin Dose 10 MG; Start 12/08/16 at 21:00 Mental Status Exam Vital Signs Vital Signs Date Time Temp Pulse Resp B/P Pulse Ox O2 Delivery O2 Flow Rate FiO2 12/09/16 10:20 36.6 86 16 131/92 Appearance: Neat/well groomed Attitude: Pleasant, Cooperative Behavior: No unusual behavior Affect: Well Modulated/Appropriate Mood: Dysthymic, Anxious Thought Process/Associations: Logical/Sequential, Goal Directed Speech Production: Normal Speech Rate: Normal Speech Articulation: Normal Thought Content: Appropriate Danger to Self/Suicidal Ideati: None Danger to Others: None Hallucinations: Auditory (Endorses), Visual (Denies) Consciousness: Alert Orientation: Person, Place, Date, Situation Memory: Grossly Intact Estimate Intellectual Function: Average Basis for IQ estimate: Awareness current events, Word use/vocabulary Attention/Concentration & Cogn: Grossly Intact Cognitive Testing Method: Abstract Reasoning during interview Insight: Good Judgement: Good Mental Health Plan The patient is a 41-year-old female with no reported mental health history prior to several years ago. Following using methamphetamine for approximately one year, she began developing auditory hallucinations, ideas of reference, and paranoia. She reportedly stopped using all substances 6 weeks ago. She has only recently been willing to receive treatment. According to the initial evaluation, she moved from [place], [place] to [place] over the past week hoping to restart her life. In addition to psychotic symptoms, the patient had also developed depressive symptoms and anxiety. The patient appears to overall be responding to treatment, but has had persistent and possibly worsening anxiety. While this could be due to reduction in benzodiazepines, it could also be activation secondary to SSRI. Discussed switching to escitalopram and patient agreeable. [place] AXIS I 1. Polysubstance use disorder with alcohol methamphetamine and narcotic use. 2. 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 Mood disorder unspecified with mixed anxiety and depression. AXIS II Defer. AXIS III None. AXIS IV Moderate. AXIS V Global assessment functioning 35 Medications Fluoxetine 20 mg daily Olanzapine 5 mg daily and 10mg nightly Clonazepam 0.5 mg 2 times a day as needed Zolpidem 5 mg nightly when necessary insomnia Hydroxyzine 50 mg every 4 hours as needed for anxiety or agitation. Treatments 1. The patient is admitted to the inpatient unit and will be provided a safe and secure environment. 2. The patient is denying current active suicidality and is not in need of a one-to-one at this time. 3. The patient is encouraged to participate with group and milieu activities. 4. The patient will be seen by the treatment team on a daily basis to assess symptoms, side effects and response to treatment. 5. Olanzapine 5mg daily and 10mg nightly 6. Will dc fluoxetine and start Lexapro 5mg today and 10mg tomorrow. 7. Clonazepam 0.5 mg twice daily as needed. 8. Vit D 1000IU daily due to low vit D levels 9. Will need outpatient f/u regarding low T4 and prior normal TSH 1.31 on at . 10. Encourage hydroxyzine use over clonazepam for anxiety, may need to discontinue clonazepam if no further reduction in use. 11. Debrox 10 drops left ear bid x 4 days 12. Anticipated length of stay is 3-5 days. Dakota Lujan MD Dec 09, 2016 15:14
[2016-12-09] MEDS: Zolpidem 5 mg Tablet for FEMALE or >65YO PO PRN (20:33)
--- NOTE | 2016-12-09 22:58 | NUR ---
Pt visible on unit, less hyperactive than yesterday, affect and mood bright, reports feeling " great" however on multiple occasions requested prn medication " Is there any medication I can have?" "What ever is available" Pt reported anxiety 04/23 and endorsed AH but mood, affect and presentation were in incongruent with expressed complaints and pt appears to be med seeking. Pt spent time in common area socializing, behavior tends to be flirtatious and she reported her goal was to "make the staff laugh today". Pt denies side effects of medication, reports headache relieved with ibuprofen.
--- NOTE | 2016-12-10 02:35 | NUR ---
Observations 1900 to 0700 Pt was out in the DR for when my shift started. Pt went to her room soon after due to having a headache.. pt was polite. Pt first appeared asleep at 21:30 and was observed every 15 minutes through the night.
--- NOTE | 2016-12-10 06:40 | NUR ---
Sleep 11p-7a Adequate sleep through the night with no noted distress or awakening per protocol checks. Total sleep 8 hours. Requested and received Motrin 600mg po prn for wrist pain rated 8/10, Vistaril 50mg po prn for felt anxiety and Zyprexa prn for voices all given @ 0526. She laid back down and is currently resting with no further distress noted.
[2016-12-10] MEDS: Omega-3 Fatty Acids 1,000 mg Capsule PO SCH (07:53)
--- NOTE | 2016-12-10 11:04 | NUR ---
[id number]. nurs. S: "Can I have some motrin for BROWN, could I have some klonapin too, I don't remember if I had some..look this is my memory book I am writing everything I have and what had down... O: Pt requesting and given motrin 600mg at 1035 for BROWN of 02/21, pt also requesting klonapin for anxiety stating that she had just spoken to and discussed some of her worrisome symptoms .for eg peripheral visual hallucinations and had been reassured "I was worried that I was going mad...Pt with bright affect , scattered, and restless, concerned re. her condition and expectations anxious but hopeful re. plan of move to [place]. 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 Pt to advise efficacy noted from motrin and klonapin. Pt occupied with artjaylank currently Addendum: 12/10/16 at 1921 by ISA GÓMEZ RN Pt requesting klonapin in later afternoon asked for vistaril and given 5mg when advised discontinued, pt reporting AHs and rising anxiety. Pt continues to be pressured , with rapid speech, is scattered and tangential pt reporting morning meds helpful pt given updated list of current meds.
--- NOTE | 2016-12-10 15:28 | PCM.PNPSY ---
Subjective Date of Service Dec 10, 2016 Subjective The patient reports that she is feeling "a little up today with extra nervous energy." She reports this is somewhat baseline for her. She has not experienced any maribell manic episodes. She reports that her anxiety was much better earlier this morning and then had an episode of increased anxiety and now is back to minimal. She reports the auditory hallucinations were higher after talking to her mother but she is still only having a few voices rather than many. She reports sleeping good at night. The patient was agreeable to increasing olanzapine to 10 mg twice daily. She also reported issues with nicotine replacement and requested a patch. She is a one half pack per day smoker. She also reported issues with eating veggie burgers so frequently and was agreeable to a dietary consult. Sleep: 8+ hours Appetite: "Really good" Suicidal and homicidal ideation: denies Auditory hallucinations: "Background mumbling" Visual hallucinations: "A little patchy light." Other Psychotic Symptoms: N/A Anxiety: 1-11/24 now, earlier today 04/23, yesterday 04/23 Depression: Patient did not wish to rate today as she was in a better mood and talking about it might alter that. Yesterday rated as 7/10 Current Medications Current Medications Escitalopram Oxalate 5 mg ONCE ONCE PO Last administered on 12/09/16 12:21; Admin Dose 5 MG; Start 12/09/16 at 11:10; Stop 12/09/16 at 11:11; Status DC Escitalopram Oxalate 10 mg DAILY PO Last administered on 12/10/16 07:53; Admin Dose 10 MG; Start 12/10/16 at 08:30 Melatonin 5 mg HS PO Last administered on 12/09/16 20:33; Admin Dose 5 MG; Start 12/09/16 at 21:00 Nicotine 1 patch DAILY TOPICAL Last administered on 12/10/16 15:17; Admin Dose 1 PATCH; Start 12/10/16 at 12:25 Olanzapine 5 mg DAILY PO Last administered on 12/10/16 07:53; Admin Dose 5 MG; Start 12/09/16 at 08:30; Stop 12/10/16 at 12:25; Status DC Olanzapine 5 mg ONCE ONCE PO Last administered on 12/10/16 15:14; Admin Dose 5 MG; Start 12/10/16 at 12:25; Stop 12/10/16 at 12:26; Status DC Olanzapine 10 mg HS PO Last administered on 12/09/16t 20:33; Admin Dose 10 MG; Start 12/08/16 at 21:00; Stop 12/10/16 at 12:25; Status DC Mental Status Exam Appearance: Neat/well groomed Attitude: Pleasant, Cooperative Behavior: No unusual behavior Affect: Well Modulated/Appropriate Mood: Anxious Thought Process/Associations: Logical/Sequential, Goal Directed Speech Production: Normal Speech Rate: Normal, Pressured (mild to normal) Speech Articulation: Normal Thought Content: Appropriate Danger to Self/Suicidal Ideati: None Danger to Others: None Hallucinations: Auditory (Endorses), Visual (Endorses) Consciousness: Alert Orientation: Person, Place, Date, Situation Memory: Grossly Intact Estimate Intellectual Function: Average Basis for IQ estimate: Awareness current events, Word use/vocabulary Attention/Concentration & Cogn: Grossly Intact Cognitive Testing Method: Abstract Reasoning during interview Insight: Good Judgement: Good Mental Health Plan The patient is a 41-year-old female with no reported mental health history prior to several years ago. Following using methamphetamine for approximately one year, she began developing auditory hallucinations, ideas of reference, and paranoia. She reportedly stopped using all substances 6 weeks ago. She has only recently been willing to receive treatment. According to the initial evaluation, she moved from [place], [place] to [place] over the past week hoping to restart her life. In addition to psychotic symptoms, the patient had also developed depressive symptoms and anxiety. The patient's anxiety appeared stable or somewhat better today. The patient was still reporting auditory hallucinations and was agreeable to increasing olanzapine to 10 mg twice a day. [place] AXIS I 1. Polysubstance use disorder with alcohol methamphetamine and narcotic use. 2. 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 Mood disorder unspecified with mixed anxiety and depression. AXIS II Defer. AXIS III None. AXIS IV Moderate. AXIS V Global assessment functioning 35 Medications Lexapro 10 mg daily Olanzapine 5 mg daily and 10mg nightly Melatonin 5 mg nightly Vitamin D 1000 units daily Clonazepam 0.5 mg 2 times a day as needed Zolpidem 5 mg nightly when necessary insomnia Hydroxyzine 50 mg every 4 hours as needed for anxiety or agitation. Debrox 10 drops left ear 4 days. Treatments 1. The patient is admitted to the inpatient unit and will be provided a safe and secure environment. 2. The patient is denying current active suicidality and is not in need of a one-to-one at this time. 3. The patient is encouraged to participate with group and milieu activities. 4. The patient will be seen by the treatment team on a daily basis to assess symptoms, side effects and response to treatment. 5. Increase olanzapine to 10 mg twice daily. 6. Continue Lexapro 10 mg daily. 7. Discontinue clonazepam. 8. Vit D 1000IU daily due to low vit D levels 9. Will need outpatient f/u regarding low T4 and prior normal TSH 1.31 on at . 10. Hydroxyzine for anxiety. 11. Debrox 10 drops left ear bid x 4 days 12. Anticipated length of stay is 3-5 days. Dakota Lujan MD Dec 10, 2016 15:28
--- NOTE | 2016-12-10 17:15 | NUR ---
Career Information Specialist./ c.m. S.:"It's hard to focus. My mood is up and down - suddenly I'm happy and than I want to cry..." O.: met with pt. and MD together in pt.'s room. She complained about mood swings that became very noticeable for her today. She denied SI/HI. She said that AH "still very loud and they are very rude to me today." She had VH "like a patchy light." She said that depression was "the same as yesterday." She said that anxiety was raging from 10/24 to 04/23. She wanted to read about Methamphetamine and principal technical writer provided pt. with that information. Pt. was in and out of her room socializing with selected peers. A.: pt. is cooperative, pleasant, looks tearful at times, social with selective peers. P.: monitor behavior, work on anxiety coping skills, follow care plan.
[2016-12-10] MEDS: Zolpidem 5 mg Tablet for FEMALE or >65YO PO PRN (20:29)
--- NOTE | 2016-12-11 04:25 | NUR ---
Observations from 5050-1810 Pt is friendly and social. Pt continues to spend her evening doing various art projects. Pt attended wrap up group and said she met her goal. Pt said that earlier her mood was 3/10 but now it's 7/10. Pt was asleep from [id number] and been monitored every 15 minutes as directed.
--- NOTE | 2016-12-11 05:52 | NUR ---
Nursing Noc Pt continues bright, pleasant and social. Participating in unit activities. Taking scheduled medication without difficulty. Very friendly with both peers & staff. She requested and received Ambien 5mg po prn for sleep with good effect. She slept from [id number] for a total of 5.75 hours. She requested and received Vistaril 50mg po prn & Motrin 600 mg po prn for felt anxiety/wrist pain upon awakening. She is spending her morning quietly visiting with her peer & coloring.
[2016-12-11 10:23] VITALS: BP 125/74; PULSE 82; RESP 12
--- NOTE | 2016-12-11 11:25 | NUR ---
Will Call Order Clerk./ c.m. S.:"I feel safe here. I'm glad that I asked for help. I feel a little better today." O.: met with pt. in her room. She was arranging paper and "making it nice here." She slept "very good" last night. She denied SI/HI. She denied paranoid/delusional thoughts. She continued having AH - "they are a little more clear today than usually if it makes sense." She said that VH didn't changed - "they are just on a periphery." She said that her "thoughts make" her "tired" and usually she has more mood swings in the 2nd part of the day. She noticed that her "thoughts are a little more manicy today - my mind is jumpy". She rated depression at 7/10 but she said that she felt "hopeful". She rated anxiety at 6/10 because she felt "a little bit jumpy." A.: pt. is cooperative, isolative, quiet, scattered and incongruent in her responses. P.: monitor behavior, monitor meds intake; follow care plan.
--- NOTE | 2016-12-11 12:39 | NUR ---
Nursing note 7-3pm S)"sorry... I am more talkative in the morning!... I am a morning person" O) pt affect bright, well groomed, states anxiety 01/22 taking Vistaril PRN states is helping better today, took Motrin for BROWN with relief, out in milieu at times working on art projects with another patient, pleasant and cooperative, states AH is pleasant not distressing, has a stack of envelopes she is mailing letters to her family, anticipating DC in next few days A) hyperverbal, pleasant, active with hobbies, medication compliant P) monitor effectiveness of medications and encourage participation in treatment
--- NOTE | 2016-12-11 16:23 | NUR ---
NUTRITION CONSULT: Consult received as per notes pt is tired of receiving veggie burgers all the time. Pt had requested to have veggie burgers sent every lunch and dinner earlier during admission so that is the reason they were being sent so frequently. Spoke with registered dietetic technician regarding pt preference to receive less veggie burgers. engineering aide will begin sending other vegetarian option to pt. Will continue to monitor.
--- NOTE | 2016-12-11 16:47 | PCM.PNPSY ---
Subjective Date of Service Dec 11, 2016 Subjective I spent 30 minutes both reviewing treatment plan and providing supportive/ educational psychotherapy. I spent more than 50% of the time counseling the patient. I reviewed the treatment plan with the patient and discussed options available including the potential risks, benefits and side effects. Latisha reports a mild improvement in thought organization and mood stability. Staff reports that she has been active and participating well in one-to-one unit and group activities. She slept 5.75 hours and denies reji symptoms review but continues to complain of auditory hallucinations. She did not appear to be responding to internal stimuli. She denies medication side effects. Patient was able to identify her medications and what they were used to treat. She appeared to understand the need for medications by the questions she asked during our discussion. Current Medications Current Medications Escitalopram Oxalate 10 mg DAILY PO Last administered on 12/11/16 07:30; Admin Dose 10 MG; Start 12/10/16 at 08:30 Melatonin 5 mg HS PO Last administered on 12/10/16 20:29; Admin Dose 5 MG; Start 12/09/16 at 21:00 Nicotine 1 patch DAILY TOPICAL Last administered on 12/11/16 07:33; Admin Dose 1 PATCH; Start 12/10/16 at 12:25 Olanzapine 5 mg ONCE ONCE PO Last administered on 12/10/16 15:14; Admin Dose 5 MG; Start 12/10/16 at 12:25; Stop 12/10/16 at 12:26; Status DC Olanzapine 10 mg BID PO Last administered on 12/11/16 07:31; Admin Dose 10 MG; Start 12/10/16 at 20:30 Mental Status Exam Vital Signs Vital Signs Date Time Temp Pulse Resp B/P Pulse Ox O2 Delivery O2 Flow Rate FiO2 12/11/16 10:23 35.8 82 12 125/74 Appearance: Neat/well groomed Attitude: Pleasant, Cooperative Behavior: No unusual behavior Affect: Well Modulated/Appropriate Mood: Anxious Thought Process/Associations: Logical/Sequential, Goal Directed Speech Production: Normal Speech Rate: Normal, Pressured (mild to normal) Speech Articulation: Normal Thought Content: Appropriate Danger to Self/Suicidal Ideati: None Danger to Others: None Hallucinations: Auditory (Endorses) Consciousness: Alert Orientation: Person, Place, Date, Situation Memory: Grossly Intact Estimate Intellectual Function: Average Basis for IQ estimate: Awareness current events, Word use/vocabulary Attention/Concentration & Cogn: Grossly Intact Cognitive Testing Method: Abstract Reasoning during interview Insight: Good Judgement: Good Mental Health Plan The patient is a 41-year-old white female, 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 She recently had a traumatic breakup with her boyfriend, stopped using alcohol, methamphetamine and narcotics for the past six weeks and is trying to recreate her life. She moved from [place], [place] to [place] over the past week hoping to restart her life. In the meantime she has developed symptoms of a major depression with psychosis. She has not previously been on medication and I reviewed relative risks, benefits and side effects of a combination of an antidepressant, antianxiety agent and an antipsychotic to target potential major depressive disorder. Although client denies a history of trauma, her symptoms seemed to be more related to PTSD. I am unable to verify the degree of her substance use although she does state she is able to drink up to a fifth of hard liquor a day. The patient's anxiety appeared stable or somewhat better today. The patient was still reporting auditory hallucinations and was agreeable to increasing olanzapine to 10 mg twice a day. [place] AXIS I 1. Polysubstance use disorder with alcohol methamphetamine and narcotic use. 2. 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 Mood disorder unspecified with mixed anxiety and depression. AXIS II Defer. AXIS III None. AXIS IV Moderate. AXIS V Global assessment functioning 40 Medications Lexapro 10 mg daily Olanzapine 5 mg daily and 10mg nightly Melatonin 5 mg nightly Vitamin D 1000 units daily Clonazepam 0.5 mg 2 times a day as needed Zolpidem 5 mg nightly when necessary insomnia Hydroxyzine 50 mg every 4 hours as needed for anxiety or agitation. Debrox 10 drops left ear 4 days. Treatments 1. The patient is admitted to the inpatient unit and will be provided a safe and secure environment. 2. The patient is denying current active suicidality and is not in need of a one-to-one at this time. 3. The patient is encouraged to participate with group and milieu activities. 4. The patient will be seen by the treatment team on a daily basis to assess symptoms, side effects and response to treatment. 5. Increase olanzapine to 10 mg twice daily. 6. Continue Lexapro 10 mg daily. 7. Discontinue clonazepam. 8. Vit D 1000IU daily due to low vit D levels 9. Will need outpatient f/u regarding low T4 and prior normal TSH 1.31 on at . 10. Hydroxyzine for anxiety. 11. Debrox 10 drops left ear bid x 4 days 12. Anticipated length of stay is 3-5 days. Jv Kwan MD Dec 11, 2016 16:47
--- NOTE | 2016-12-11 18:55 | NUR ---
Obs Dayshift [id number] Pt is attending all groups, good participation, engaging well w/ peers and staff, appropriate and thankful. Pt is often found doing art work, drawing, painting. Pt is linear, calm, polite, slightly pressured at times, anxious, tearful at times. Pt gives herself a time out when she is overwhelmed or anxious, and will then re-engage. Pt states that she is going to DC this week, states that she is feeling much better, and is concerned about things she might have done before coming in and the first few days that she was here. Pt is often looking for encouragement from others. Good ADL's, Good meals
--- NOTE | 2016-12-11 19:29 | NUR ---
NURSING NOTE [id number] Mood= "ummm the voices are getting louder?" Affect= labile Behavior= social, visible, smiling at start of shift; spending time in the rec room w/peers, chatting and walking the halls w/a peer, made multiple phone calls. Later came out of her room sobbing and reported she was feeling overwhelmed "because of all the people here." Thought processes= endorsing AH; "I'm hearing, like, four of the people I love the most just chatting away in my ear." No VH. Endorsed anxiety and depression, denied SI/HI. PRNs Hydroxyzine 50 mg @ 16:46
[2016-12-11] MEDS: Zolpidem 5 mg Tablet for FEMALE or >65YO PO PRN (19:57)
[2016-12-11] MEDS: Omega-3 Fatty Acids 1,000 mg Capsule PO SCH (19:57)
--- NOTE | 2016-12-12 01:49 | NUR ---
Observations 1900 to 0700 Pt isolated to herself for awhile last night. Pt did come out and socialize for a bit. pt was polite and cooperative. Pt first appeared asleep at 22:45 and was observed every 15 minutes through the night.
--- NOTE | 2016-12-12 04:51 | NUR ---
Assembly Press Operator 11pm to 7am Pt slept through the night until 0345 when she woke up and took a vistaril prn with good effect. Monitored q 15 minutes for safety location and accountability.
--- NOTE | 2016-12-12 15:51 | NUR ---
Garnisher./ c.m. S./O.: pt. was in and out of her room talking to selective peers. She denied SI/HI. She is scheduled to go to court tomorrow. Oswaldo from [facility] ([phone]. [phone]) called today and asked about pt.'s progress. She wanted to know pt.'s legal status and her progress tomorrow after court hearing. She said that [facility] was the agency that initially was dealing with pt.'s mental health crisis and she wanted to make sure that pt. would get follow up care after discharge. A.: pt. is cooperative, pleasant, social with peers. P.: monitor behavior, contact Oswaldo at [facility], court tomorrow, follow care plan.
--- NOTE | 2016-12-12 16:51 | NUR ---
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
--- NOTE | 2016-12-12 17:42 | PCM.PNPSY ---
Subjective Date of Service Dec 12, 2016 Subjective I spent 30 minutes both reviewing treatment plan and providing supportive/ educational psychotherapy. I spent more than 50% of the time counseling the patient. I reviewed the treatment plan with the patient and discussed options available including the potential risks, benefits and side effects. Latisha reports a mild improvement in thought organization and mood stability. Staff reports that she has been active and participating well in one-to-one unit and group activities. She slept 6.5 hours and denies reji symptoms review but continues to complain of auditory hallucinations and appears hypo manic. She did not appear to be responding to internal stimuli. She denies medication side effects. Patient was able to identify her medications and what they were used to treat. She asked for scheduled Klonopin. She appeared to understand the need for medications by the questions she asked during our discussion. Current Medications Current Medications Olanzapine 10 mg BID PO Last administered on 12/12/16t 07:18; Admin Dose 10 MG; Start 12/10/16 at 20:30 Mental Status Exam Appearance: Neat/well groomed Attitude: Pleasant, Cooperative Behavior: No unusual behavior Affect: Well Modulated/Appropriate Mood: Anxious Thought Process/Associations: Logical/Sequential, Goal Directed Speech Production: Normal Speech Rate: Normal, Pressured (mild to normal) Speech Articulation: Normal Thought Content: Appropriate Danger to Self/Suicidal Ideati: None Danger to Others: None Hallucinations: Auditory (Endorses) Consciousness: Alert Orientation: Person, Place, Date, Situation Memory: Grossly Intact Estimate Intellectual Function: Average Basis for IQ estimate: Awareness current events, Word use/vocabulary Attention/Concentration & Cogn: Grossly Intact Cognitive Testing Method: Abstract Reasoning during interview Insight: Good Judgement: Good Mental Health Plan The patient is a 41-year-old white female, 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 She recently had a traumatic breakup with her boyfriend, stopped using alcohol, methamphetamine and narcotics for the past six weeks and is trying to recreate her life. She moved from [place], [place] to [place] over the past week hoping to restart her life. In the meantime she has developed symptoms of a major depression with psychosis. She has not previously been on medication and I reviewed relative risks, benefits and side effects of a combination of an antidepressant, antianxiety agent and an antipsychotic to target potential major depressive disorder. Although client denies a history of trauma, her symptoms seemed to be more related to PTSD. I am unable to verify the degree of her substance use although she does state she is able to drink up to a fifth of hard liquor a day. The patient's anxiety appeared stable or somewhat better today. The patient was still reporting auditory hallucinations and was agreeable to increasing olanzapine to 10 mg twice a day. Latisha continues to make slow but steady progress. I will restart Klonopin per her request In an attempt to treat hypomanic symptoms. [place] AXIS I 1. Polysubstance use disorder with alcohol methamphetamine and narcotic use. 2. 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 Mood disorder unspecified with mixed anxiety and depression. AXIS II Defer. AXIS III None. AXIS IV Moderate. AXIS V Global assessment functioning 40 Medications Lexapro 10 mg daily Olanzapine 5 mg daily and 10mg nightly Melatonin 5 mg nightly Vitamin D 1000 units daily Clonazepam 0.5 mg 2 times a day as needed Zolpidem 5 mg nightly when necessary insomnia Hydroxyzine 50 mg every 4 hours as needed for anxiety or agitation. Debrox 10 drops left ear 4 days. Treatments 1. The patient is admitted to the inpatient unit and will be provided a safe and secure environment. 2. The patient is denying current active suicidality and is not in need of a one-to-one at this time. 3. The patient is encouraged to participate with group and milieu activities. 4. The patient will be seen by the treatment team on a daily basis to assess symptoms, side effects and response to treatment. 5 olanzapine to 10 mg twice daily. 6. Lexapro 10 mg daily. 7. clonazepam 0.5 mg twice a day 8. Vit D 1000IU daily due to low vit D levels 9. Will need outpatient f/u regarding low T4 and prior normal TSH 1.31 on at . 10. Hydroxyzine for anxiety. 11. Debrox 10 drops left ear bid x 4 day. Jv Kwan MD Dec 12, 2016 17:42
[2016-12-12] MEDS: diphenhydrAMINE 25 mg Capsule PO PRN (17:52)
[2016-12-12] MEDS: Omega-3 Fatty Acids 1,000 mg Capsule PO SCH (20:18)
[2016-12-12] MEDS: Zolpidem 5 mg Tablet for FEMALE or >65YO PO PRN (20:21)
--- NOTE | 2016-12-12 20:34 | NUR ---
Obs Dayshift [id number] Pt is very engaged w/ peers and staff, polite, participating in groups, and art during free times. Pt has very good ADL's, helpful toward peers, spending more time in her room, working on controlling her anxiety. Pt is positive and looking forward to DC later this week. Pt received a care package for her DC from family, very excited and thankful. Good ADL's, Good meals
--- NOTE | 2016-12-13 02:11 | NUR ---
Observations 1900 to 0700 Pt isolated to herself for awhile last night. Pt did come out and socialize for a bit and color. Pt was polite and cooperative. Pt first appeared asleep at 21:45 and was observed every 15 minutes through the night.
[2016-12-13] MEDS: diphenhydrAMINE 25 mg Capsule PO PRN ×2 (03:49→18:14)
--- NOTE | 2016-12-13 05:27 | NUR ---
Nursing Noc Pt remains pleasant and slightly Hypomanic. Pt requesting PRNs appropriately as needed for anxiety and sleep. Zero obvious internal stimuli noted this shift. Continue to monitor mood, behavior, emotional state and sleep times by Q15 minute safety checks.
--- NOTE | 2016-12-13 12:02 | NUR ---
DAYS 7- S/O- Patient has been very active and moving about unit interacting with patients and staff. Bright affect, states " I really like your hair it is so cool, how did you do it?" Positive and at times tangental, doing artwork and exercise class. A- Interacting with patient, setting boundaries, check safety plan, redirect in social milieu when needed. P- Court today granted continuance until Sunday of this week(11/17). Addendum: 12/13/16 at 1218 by KAYLA SIDDIQUI RN Amended: Links added.
[2016-12-13 14:46] VITALS: BP 115/77; PULSE 86; RESP 18
--- NOTE | 2016-12-13 15:16 | PCM.PNPSY ---
Subjective Date of Service Dec 13, 2016 Subjective I spent 30 minutes both reviewing treatment plan and providing supportive/ educational psychotherapy. I spent more than 50% of the time counseling the patient. I reviewed the treatment plan with the patient and discussed options available including the potential risks, benefits and side effects. Latisha reports improvement in thought organization and mood stability. Staff reports that she has been active and participating well in one-to-one unit and group activities. She slept 7 hours and denies reji symptoms review but continues to complain of auditory hallucinations and appears hypomanic. She did not appear to be responding to internal stimuli. She denies medication side effects. Patient was able to identify her medications and what they were used to treat. She asked for scheduled Klonopin. She appeared to understand the need for medications by the questions she asked during our discussion. Current Medications Current Medications Carbamide Peroxide 10 drop BID LEFT_EAR Last administered on 12/13/16 14:53; Admin Dose 10 DROP; Start 12/13/16 at 14:00; Stop 12/17/16 at 14:01 Clonazepam 0.5 mg BID PRN PO Last administered on 12/13/16 14:55; Admin Dose 0.5 MG; Start 12/12/16 at 17:45 Diphenhydramine HCl 25 mg Q4H PRN PO Last administered on 12/13/16 03:49; Admin Dose 25 MG; Start 12/12/16 at 17:45 Mental Status Exam Vital Signs Vital Signs Date Time Temp Pulse Resp B/P Pulse Ox O2 Delivery O2 Flow Rate FiO2 12/13/16 14:46 36.7 86 18 115/77 Appearance: Neat/well groomed Attitude: Pleasant, Cooperative Behavior: No unusual behavior Affect: Well Modulated/Appropriate Mood: Anxious Thought Process/Associations: Logical/Sequential, Goal Directed Speech Production: Normal Speech Rate: Normal, Pressured (mild to normal) Speech Articulation: Normal Thought Content: Appropriate Danger to Self/Suicidal Ideati: None Danger to Others: None Hallucinations: Auditory (Endorses) Consciousness: Alert Orientation: Person, Place, Date, Situation Memory: Grossly Intact Estimate Intellectual Function: Average Basis for IQ estimate: Awareness current events, Word use/vocabulary Attention/Concentration & Cogn: Grossly Intact Cognitive Testing Method: Abstract Reasoning during interview Insight: Good Judgement: Good Mental Health Plan The patient is a 41-year-old white female, 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 She recently had a traumatic breakup with her boyfriend, stopped using alcohol, methamphetamine and narcotics for the past six weeks and is trying to recreate her life. She moved from [place], [place] to [place] over the past week hoping to restart her life. In the meantime she has developed symptoms of a major depression with psychosis. She has not previously been on medication and I reviewed relative risks, benefits and side effects of a combination of an antidepressant, antianxiety agent and an antipsychotic to target potential major depressive disorder. Although client denies a history of trauma, her symptoms seemed to be more related to PTSD. I am unable to verify the degree of her substance use although she does state she is able to drink up to a fifth of hard liquor a day. The patient's anxiety appeared stable or somewhat better today. The patient was still reporting auditory hallucinations and was agreeable to increasing olanzapine to 10 mg twice a day. Latisha continues to make slow but steady progress. Klonopin restarted in an attempt to treat hypomanic symptoms. [place] AXIS I 1. Polysubstance use disorder with alcohol methamphetamine and narcotic use. 2. 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 Mood disorder unspecified with mixed anxiety and depression. AXIS II Defer. AXIS III None. AXIS IV Moderate. AXIS V Global assessment functioning 40 Medications Lexapro 10 mg daily Olanzapine 5 mg daily and 10mg nightly Melatonin 5 mg nightly Vitamin D 1000 units daily Clonazepam 0.5 mg 2 times a day as needed Zolpidem 5 mg nightly when necessary insomnia Hydroxyzine 50 mg every 4 hours as needed for anxiety or agitation. Debrox 10 drops left ear 4 days. Treatments 1. The patient is admitted to the inpatient unit and will be provided a safe and secure environment. 2. The patient is denying current active suicidality and is not in need of a one-to-one at this time. 3. The patient is encouraged to participate with group and milieu activities. 4. The patient will be seen by the treatment team on a daily basis to assess symptoms, side effects and response to treatment. 5 olanzapine to 10 mg twice daily. 6. Lexapro 10 mg daily. 7. clonazepam 0.5 mg twice a day 8. Vit D 1000IU daily due to low vit D levels 9. Will need outpatient f/u regarding low T4 and prior normal TSH 1.31 on at . 10. Hydroxyzine for anxiety. 11. Debrox 10 drops left ear bid x 4 day. Jv Kwan MD Dec 13, 2016 15:16
--- NOTE | 2016-12-13 17:20 | NUR ---
Obs Dayshift Pt is well engaged on the unit, constantly moving, doing art work, painting or drawing. Positive and polite w/ peers and staff. Smiling, very positive, looking forward to DC soon. Pt is carefree, tends to ian art supplies, hyper. Good ADL's, Good meals
--- NOTE | 2016-12-13 18:17 | NUR ---
[id number]. nurs. S: "I just need some thing to see if I rest for I while the voices will stay away" O: Pt given benedryl 25mg at 1814 had received klonapin at 1455, pt stated that she had some AHs in am but were better because she had kept busy with activities. Pt also reported that AHs were less today notably than on all prev. days. Pt also given a warm pack for ankle she felt she had twisted earlier in day.
[2016-12-13] MEDS: Omega-3 Fatty Acids 1,000 mg Capsule PO SCH (19:58)
--- NOTE | 2016-12-14 02:03 | NUR ---
Observations 1900 to 0700 Pt isolated to herself for awhile last night. Pt did come out and socialize for a bit and color. Pt did attend group. Pt was polite and cooperative. Pt first appeared asleep at 21:30 and was observed every 15 minutes through the night.
--- NOTE | 2016-12-14 05:29 | NUR ---
Nursing Noc Pt noted to request available PRN to assist with sleep then after aprox 5 hour patient was up requesting Vistaril and Ibuprofen. Pt reported strange dreams and was discovered to have forgotten to remove her Nicotine Patch. Pt remains bright pleasant with hypomanic speech patterns.
--- NOTE | 2016-12-14 14:09 | PCM.PNPSY ---
Subjective Date of Service Dec 14, 2016 Subjective I spent 30 minutes both reviewing treatment plan and providing supportive/ educational psychotherapy. I spent more than 50% of the time counseling the patient. I reviewed the treatment plan with the patient and discussed options available including the potential risks, benefits and side effects. Latisha reports improvement in thought organization and mood stability. Staff reports that she has been active and participating well in one-to-one unit and group activities. She slept 6.5 hours and denies reji symptoms review but continues to complain of auditory hallucinations but no longer appears hypomanic. She did not appear to be responding to internal stimuli. She denies medication side effects. Patient was able to identify her medications and what they were used to treat. She asked for scheduled Klonopin. She appeared to understand the need for medications by the questions she asked during our discussion. Current Medications Current Medications Carbamide Peroxide 10 drop BID LEFT_EAR Last administered on 12/14/16 08:03; Admin Dose 10 DROP; Start 12/13/16 at 14:00; Stop 12/17/16 at 14:01 Clonazepam 0.5 mg BID PRN PO Last administered on 12/13/16 18:50; Admin Dose 0.5 MG; Start 12/12/16 at 17:45 Diphenhydramine HCl 25 mg Q4H PRN PO Last administered on 12/13/16 18:14; Admin Dose 25 MG; Start 12/12/16 at 17:45 Mental Status Exam Appearance: Neat/well groomed Attitude: Pleasant, Cooperative Behavior: No unusual behavior Affect: Well Modulated/Appropriate Mood: Anxious Thought Process/Associations: Logical/Sequential, Goal Directed Speech Production: Normal Speech Rate: Normal, Pressured (mild to normal) Speech Articulation: Normal Thought Content: Appropriate Danger to Self/Suicidal Ideati: None Danger to Others: None Hallucinations: Auditory (Endorses) Consciousness: Alert Orientation: Person, Place, Date, Situation Memory: Grossly Intact Estimate Intellectual Function: Average Basis for IQ estimate: Awareness current events, Word use/vocabulary Attention/Concentration & Cogn: Grossly Intact Cognitive Testing Method: Abstract Reasoning during interview Insight: Good Judgement: Good Mental Health Plan The patient is a 41-year-old white female, 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 She recently had a traumatic breakup with her boyfriend, stopped using alcohol, methamphetamine and narcotics for the past six weeks and is trying to recreate her life. She moved from [place], [place] to [place] over the past week hoping to restart her life. In the meantime she has developed symptoms of a major depression with psychosis. She has not previously been on medication and I reviewed relative risks, benefits and side effects of a combination of an antidepressant, antianxiety agent and an antipsychotic to target potential major depressive disorder. Although client denies a history of trauma, her symptoms seemed to be more related to PTSD. I am unable to verify the degree of her substance use although she does state she is able to drink up to a fifth of hard liquor a day. The patient's anxiety appeared stable or somewhat better today. The patient was still reporting auditory hallucinations and was agreeable to increasing olanzapine to 10 mg twice a day. Latisha continues to make slow but steady progress. Klonopin restarted in an attempt to treat hypomanic symptoms. She appears to be stabilizing and will likely be ready for discharge Sunday a.m. [place] AXIS I 1. Polysubstance use disorder with alcohol methamphetamine and narcotic use. 2. 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 Mood disorder unspecified with mixed anxiety and depression. AXIS II Defer. AXIS III None. AXIS IV Moderate. AXIS V Global assessment functioning 40 Medications Lexapro 10 mg daily Olanzapine 10mg daily and 10mg nightly Melatonin 5 mg nightly Vitamin D 1000 units daily Clonazepam 0.5 mg 2 times a day as needed Zolpidem 5 mg nightly when necessary insomnia Hydroxyzine 50 mg every 4 hours as needed for anxiety or agitation. Debrox 10 drops left ear 4 days. Treatments 1. The patient is admitted to the inpatient unit and will be provided a safe and secure environment. 2. The patient is denying current active suicidality and is not in need of a one-to-one at this time. 3. The patient is encouraged to participate with group and milieu activities. 4. The patient will be seen by the treatment team on a daily basis to assess symptoms, side effects and response to treatment. 5 olanzapine to 10 mg twice daily. 6. Lexapro 10 mg daily. 7. clonazepam 0.5 mg twice a day 8. Vit D 1000IU daily due to low vit D levels 9. Will need outpatient f/u regarding low T4 and prior normal TSH 1.31 on at . 10. Hydroxyzine for anxiety. 11. Debrox 10 drops left ear bid x 4 day. 12. Discharge Sunday and that continues to improve Jv Kwan MD Dec 14, 2016 14:09
[2016-12-14] MEDS: diphenhydrAMINE 25 mg Capsule PO PRN ×2 (14:37→20:03)
--- NOTE | 2016-12-14 18:03 | NUR ---
[facility] Day Shift Pt maintained behavioral control throughout the shift. Pt affect appears bright, manic, occasionally anxious. Pt spends most of the shift reading/resting in her room, interacting with peers or drawing/writing in the dining room, and participating in unit activities. Pt is pleasant and appropriate with staff and peers when active on the unit. Pt appears busy throughout the shift, constantly seeking to engage in unit activities and preparing for eventual DC. Pt attended community meeting in the AM and all group activities throughout the shift. Pt attended lunch and dinner and ate approx 90% of both meals.
--- NOTE | 2016-12-14 19:16 | NUR ---
[id number]. nurs. S/O: Pt continues to maintain very busy activity, particularly art related work, is mostly out on unit, is social with peers and comes to staff at intervals, to request anxiety and or congestion relief meds. Pt reports anxiety re. peers outburst and given klonapin and benedryl in afternoon. Pt states that staying busy helps her to be distracted from AHs that are more intrusive when she is isolated in bedrm trying to rest. Pt is possibly becoming more anxious as discharge approaches and she has no stable housing in place and will be in unfamiliar environment. Pt is hopeful that she can make new living situation work and connect with community in [facility]. P:MERNAP
[2016-12-14] MEDS: Omega-3 Fatty Acids 1,000 mg Capsule PO SCH (20:03)
[2016-12-15] MEDS: Zolpidem 5 mg Tablet for FEMALE or >65YO PO PRN ×2 (02:29→20:17)
--- NOTE | 2016-12-15 04:28 | NUR ---
Pt out on unit in evening. Asleep [id number]. Pt observed every 15 minutes as ordered.
--- NOTE | 2016-12-15 05:52 | NUR ---
Nursing Noc Pt pleasant this shift noted to be asleep at 2145 then up briefly a couple of times through the night for fluids. Pt up for the rest of the night from 0600. Pt believes she is discharging today back to [place].
[2016-12-15] MEDS: diphenhydrAMINE 25 mg Capsule PO PRN ×3 (12:23→20:19)
--- NOTE | 2016-12-15 12:52 | PCM.PNPSY ---
Subjective Date of Service Dec 15, 2016 Subjective I spent 30 minutes both reviewing treatment plan and providing supportive/ educational psychotherapy. I spent more than 50% of the time counseling the patient. I reviewed the safety plan with the patient. Latisha reports good thought organization and mood stability. Staff reports that she has been active and participating well in one-to-one unit and group activities. She slept 6hours and denies reji symptoms review and notes a decrease in the intensity of auditory hallucinations. She did not appear to be responding to internal stimuli. She denies medication side effects. We discussed patient follow-up and transfer session back to [place]. We are having difficulties with transportation and she may need to stay an additional day. Patient was able to identify her medications and what they were used to treat. She asked for scheduled Klonopin. She appeared to understand the need for medications by the questions she asked during our discussion. Current Medications Current Medications Carbamide Peroxide 10 drop BID LEFT_EAR Last administered on 12/15/16t 08:13; Admin Dose 10 DROP; Start 12/13/16 at 14:00; Stop 12/17/16 at 14:01 Mental Status Exam Appearance: Neat/well groomed Attitude: Pleasant, Cooperative Behavior: No unusual behavior Affect: Well Modulated/Appropriate Mood: Anxious Thought Process/Associations: Logical/Sequential, Goal Directed Speech Production: Normal Speech Rate: Normal, Pressured (mild to normal) Speech Articulation: Normal Thought Content: Appropriate Danger to Self/Suicidal Ideati: None Danger to Others: None Hallucinations: Auditory (Endorses) Consciousness: Alert Orientation: Person, Place, Date, Situation Memory: Grossly Intact Estimate Intellectual Function: Average Basis for IQ estimate: Awareness current events, Word use/vocabulary Attention/Concentration & Cogn: Grossly Intact Cognitive Testing Method: Abstract Reasoning during interview Insight: Good Judgement: Good Mental Health Plan The patient is a 41-year-old white female, 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 She recently had a traumatic breakup with her boyfriend, stopped using alcohol, methamphetamine and narcotics for the past six weeks and is trying to recreate her life. She moved from [place], [place] to [place] over the past week hoping to restart her life. In the meantime she has developed symptoms of a major depression with psychosis. She has not previously been on medication and I reviewed relative risks, benefits and side effects of a combination of an antidepressant, antianxiety agent and an antipsychotic to target potential major depressive disorder. Although client denies a history of trauma, her symptoms seemed to be more related to PTSD. I am unable to verify the degree of her substance use although she does state she is able to drink up to a fifth of hard liquor a day. The patient's anxiety appeared stable or somewhat better today. The patient was still reporting auditory hallucinations and was agreeable to increasing olanzapine to 10 mg twice a day. Latisha continues to make slow but steady progress. Klonopin restarted in an attempt to treat hypomanic symptoms. She appears to be stabilizing and will discharge early Sunday a.m. [place] AXIS I 1. Polysubstance use disorder with alcohol methamphetamine and narcotic use. 2. 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 Mood disorder unspecified with mixed anxiety and depression. AXIS II Defer. AXIS III None. AXIS IV Moderate. AXIS V Global assessment functioning 45 Medications Lexapro 10 mg daily Olanzapine 10mg daily and 10mg nightly Melatonin 5 mg nightly Vitamin D 1000 units daily Clonazepam 0.5 mg 2 times a day as needed Zolpidem 5 mg nightly when necessary insomnia Hydroxyzine 50 mg every 4 hours as needed for anxiety or agitation. Debrox 10 drops left ear 4 days. Treatments 1. The patient is admitted to the inpatient unit and will be provided a safe and secure environment. 2. The patient is denying current active suicidality and is not in need of a one-to-one at this time. 3. The patient is encouraged to participate with group and milieu activities. 4. The patient will be seen by the treatment team on a daily basis to assess symptoms, side effects and response to treatment. 5 olanzapine to 10 mg twice daily. 6. Lexapro 10 mg daily. 7. clonazepam 0.5 mg twice a day 8. Vit D 1000IU daily due to low vit D levels 9. Will need outpatient f/u regarding low T4 and prior normal TSH 1.31 on at . 10. Hydroxyzine for anxiety. 11. Debrox 10 drops left ear bid x 4 day. 12. Discharge Sunday Jv Kwan MD Dec 15, 2016 12:52
[2016-12-15] MEDS ORDERED: MELA5TAB14 PO (12:55)
[2016-12-15] MEDS ORDERED: ESCI10TA52 PO (12:55)
[2016-12-15] MEDS ORDERED: OLAN5TAB PO (12:55)
--- NOTE | 2016-12-15 12:59 | PCM.DIMED ---
Discharge Instructions Date of Service Dec 15, 2016 Dates of Hospitalization Dec 01, 2016 at 11:15 Discharge Diagnosis Discharge Diagnosis AXIS I 1. major depressive disorder with psychotic features 2. Polysubstance use disorder with alcohol methamphetamine and narcotic use. AXIS II Defer. AXIS III None. AXIS IV Moderate. AXIS V Global assessment functioning 45 Medication Instructions I Strongly encouraged patient to follow up with outpatient care: 1-Recommended patient takes medication as prescribed and not alter this unless under the direct care of a provider: Lexapro 10 mg daily Olanzapine 10mg daily and 10mg nightly Melatonin 5 mg nightly Vitamin D 1000 units daily 2-Recommend client refrain from recreational drugs and alcohol while taking psychiatric medications. 3-Recommend client start a 12 step program to deal with issues of addiction. 4-Recommend patient attempt to find a therapist or group to deal with impulse control and interpersonal relationship conflicts Diet No restrictions Activity No restrictions Call your provider Fever or Chills Patient Instructions Follow-up plan Client to follow up with [facility] in [place] Client has arranged long term care for herself in [place] Follow-up with PCP in: 2 weeks Jv Kwan MD Dec 15, 2016 12:59
--- NOTE | 2016-12-15 14:10 | NUR ---
Nursing Day Shift- S- "Can I get something for anxiety, a heat pack and help with a phone number?" (1150 today.) O- Pt. was awake for breakfast. She continues to appear upbeat and social with frequent compliments and "Thank you's" for staff, mixed with frequent requests. She denied suicidal thoughts. Pt. requested and was given Klonopin PRN with her scheduled AM medications. At noon she again requested Klonopin. Pt. was offered and took Vistaril 50 mg at that time for anxiety rated 7/10. A- Hypomanic with poor boundaries. Anxiety. P- Pt. was planning to discharge today, but due to her lack of financial resources and complicated public transport connections to travel to [facility], it was decided it would be safer to leave early tomorrow. Cont. bHTP. Pt's HENRIQUE hold was dismissed in court today.
--- NOTE | 2016-12-15 17:08 | NUR ---
Sociology Professor/Counselor: S: "I'm excited about the summer." O: Met with patient. Patient slept 6+ hours last night as per staff. She denies S/I and H/I. She reports the voices are really quiet today. She denied visual hallucinations. Depression is 0/10 and anxiety is 0/10. Patient is scheduled to discharge Sunday. She has been authorized in-patient coverage until Sunday. A: Patient is cooperative, pleasant, bright affect, hopeful, anxious at times. P: Follow care plan, coordinate out-patient providers.
--- NOTE | 2016-12-15 18:27 | NUR ---
S Day Shift Pt affect and behavior mostly unchanged from previous shift. Pt maintained behavioral control throughout the shift. Pt affect appears bright, manic, occasionally anxious. Pt spends most of the shift reading/resting in her room, interacting with peers or drawing/writing in the dining room, and participating in unit activities. Pt is pleasant and appropriate with staff and peers when active on the unit. Pt appears busy throughout the shift, constantly seeking to engage in unit activities and preparing for eventual DC. Pt appears less busy/enthusiastic in the afternoon, following revised DC plans. Pt attended community meeting in the AM and all group activities throughout the shift. Pt attended all meals and ate approx 100% of all meals.
[2016-12-15] MEDS: Omega-3 Fatty Acids 1,000 mg Capsule PO SCH (20:17)
--- NOTE | 2016-12-15 21:47 | NUR ---
Nurses PRN Patient requested and received Ambien 5mg,Vistaril 50mg,Benadryl 25mg for sleep, shift commander to assess response.
--- NOTE | 2016-12-16 05:29 | NUR ---
nursing, nights, 11-7 s- i had a weird dream. i woke up again. i'm sorry for bothering you. i don't know what is wrong. can i have a snack with that ? thank you. o- has appeared to sleep after 2144. up at 0030 and received 50 mg of vistaril and a snack. up at 0230 and received 0.5 mg of klonopin. easily returned to sleep both times. is now socializing with another peer in the dinning room. assessed q 15 minutes. a- interrupted sleep, pleasant and appropriate, no apparent distress. p- monitor behavior/emotional state, quality, times and amount of sleep, use and effect of medication. tray
[2016-12-16 11:48] VITALS: BP 120/73; PULSE 90; RESP 16
[2016-12-16] MEDS: diphenhydrAMINE 25 mg Capsule PO PRN ×2 (13:22→17:18)
[2016-12-16] MEDS ORDERED: CLON0.5T PO (15:52)
--- NOTE | 2016-12-16 16:59 | NUR ---
Weather Algorithm Scientist./ c.mSandi S.:"My ex will come and pick me up today." O.: met with pt. to discuss her discharge plan. She completed Safety plan. She denied SI/HI, denied depression. She felt very positive about her discharge to the nursing home where she came from. She is aware that comic writer will call her on Sunday with a day and time for her intake appt. for mental health services at [facility] in [place] ([phone]). She talked to her "ex" and he agreed to pick her up and to take her back to the nursing home. She spent most of the day doing crafts and enjoying her time here. A.: pt. is cooperative, pleasant, has a bright affect and a positive attitude. P.: monitor behavior, follow care plan.
--- NOTE | 2016-12-16 18:33 | NUR ---
Nursing Discharge Note: Patient cooperative with discharge process. Acknowledges understanding of d/c instructions and has a copy in their possession. Belongings accounted for and with patient. Prescriptions faxed to patients pharmacy at [facility]. Hard copies with patient. Denies harmful thoughts and hallucinations at this time. Presently awaiting ride.
[2016-12-16] MEDS: Omega-3 Fatty Acids 1,000 mg Capsule PO SCH (20:51)
--- NOTE | 2016-12-16 21:19 | NUR ---
OBSERVATIONS 0900 TO 2130 Pt was social and mostly appropriate with peers. Pt needed to be reminded of appropriate personal space in relation to other pts while on the unit. Pt was pleasant and cooperative with staff. Worked on several art projects in group room, packed up belongings for d/c. Pt demonstrated needy behavior throughout the day as well as anxiety related to d/c. Maintained Q15 checks for safety as directed.
[2016-12-16] MEDS: Zolpidem 5 mg Tablet for FEMALE or >65YO PO PRN (22:07)
--- NOTE | 2016-12-16 22:15 | NUR ---
Nurses Discharge Note Patient was discharged from the unit with all her belongings in good spirits. She will be at the [facility] until her friend arrives to pick her up late tonight, early am. Patients' friend Erwin Oswaldo' phone # [phone] as patients' phone is not active.
[2016-12-17] MEDS ORDERED: CIPRODEX AFFECT_EAR (12:21)
--- NOTE | 2016-12-17 20:20 | DIS ---
[address] [address] DISCHARGE SUMMARY PATIENT: SARAH SINGER : 1975 MR#: [id number] ADMIT: 12/01/2016 JOB ID: [id number] DIS: 12/16/2016 IDENTIFICATION: Patient is a 41-year-old, white female, currently single and homeless. 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 She broke up with her boyfriend and traveled from [place] to [place]. REASON FOR ADMISSION: Client detained on a 72-hour hold as gravely disabled after presenting to [facility] complaining of suicidal ideation with a plan to drown herself. She also stated she was having auditory hallucinations of a derogatory nature. 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 She recently had a traumatic break-up with her boyfriend. She has stopped using alcohol, methamphetamine and narcotics for the past six weeks and was trying to recreate her life. She is trying to move from [place] to [place]. In the meantime, she has multiple symptoms of major depression with psychosis. She has not previously been on medication. HOSPITAL COURSE: Client admitted to our unit and provided with a high degree of safety through the structure and active adult engagement she received here. We had her participate in one-to-one unit and group activities focused on improving coping skills, as well as helping her establish reality-based thinking. In addition, we worked with her to come up with a safety plan should suicidal ideation recur as an outpatient. She participated well in all the above events and showed a gradual and steady improvement in mood and decrease in symptoms. Client was given a combination of medications Lexapro 10 daily, olanzapine 10 b.i.d. and melatonin 5 h.s. With this dose she had decrease in her psychotic symptoms and has had improved thought organization. Her mood stability has continued to improve. DISCHARGE DIAGNOSIS: [place] I1. Major depressive disorder with psychotic features. 2. Polysubstance abuse with alcohol, methamphetamine, narcotic use. [place] IIDeferred. [place] IIINone. [place] IVModerate. [place] VCurrent GAF equal to 45. DISCHARGE PLAN: Client to follow up with [facility] in [place] for an intake on Sunday morning. DISCHARGE MEDICATIONS: 1. Lexapro 10 daily. 2. Zyprexa 10 b.i.d. 3. Melatonin 5 h.s. ACTIVITY AND DIET: No restrictions. Recommend client refrain from recreational drugs and alcohol while taking psychiatric medications. Recommend she not change her medications unless under the supervision of a physician. CONDITION ON DISCHARGE: Good. PROGNOSIS: Guarded.
== END 2016-12-16 22:15 | disposition home or self-care (01) | DRG 885 ==
LOC: MHC 11:15
PROVIDERS: ADMIT Psychiatry & Neurology Psychiatry; ATTEND Psychiatry & Neurology Psychiatry
DX: F33.3 Major depressive disorder, recurrent, severe with psychotic symptoms (principal); R45.851 Suicidal ideations; Z59.0 Homelessness; Z91.5 Personal history of self-harm; F19.10 Other psychoactive substance abuse, uncomplicated

== ENCOUNTER 2016-12-17 11:34 | Emergency (ER) | payer MEDICAID, OTHER ==
[~2016-12-17] VITALS: Ht 160 cm; Wt 50.0 kg
[~2016-12-17 11:34] MED LIST: CLON0.5T PO; ESCI10TA52 PO; MELA5TAB14 PO; OLAN5TAB PO
--- NOTE | 2016-12-17 11:38 | ED.REPORT ---
HPI-General Illness Date of Service Dec 17, 2016 ED Provider: Ramsey Gibson MD A 41 year old homeless female with a history of major depressive disorder with psychotic features, polysubstance abuse and suicidal ideation presents to the ED requesting medication refill. Patient reports that she is anxious and shaking. Patient is also complaining of left ear pain. She states that she was unable to fill the prescriptions until she retuned home to [place]. Patient was admitted to the hospital on 12/01 for suicidal ideation with a plan and auditory hallucinations. She was discharged on 12/16 with instructions to follow up with outpatient care and continue prescribed medications including Lexapro and Olanzapine. She denies any current suicidal ideation. Nursing Notes Stated Complaint: MEDS Nursing Notes Reviewed: Yes Allergies: Coded Allergies: No Known Allergies (Unverified , 12/01/16) Scheduled Ciprofloxacin/Dexameth Otic Susp (Ciprodex Otic Susp) 15 Drop/Ml Oticsoln 1 DROP AFFECT_EAR TID Escitalopram Oxalate (Escitalopram Oxalate) 10 Mg Tablet 10 MG PO DAILY Melatonin (Melatonin) 5 Mg Tablet 5 MG PO HS Olanzapine (Olanzapine) 5 Mg Tablet 10 MG PO BID Scheduled PRN Clonazepam (Klonopin) 0.5 Mg Tablet 0.5 MG PO BID PRN PRN For Anxiety General Time Seen by MD: 11:37 Chief Complaint Medication refill Hx Obtained From: Patient Arrived By: Walk-in Sudden in Onset?: No Onset Occurred: Onset unknown Symptom Duration: Duration unknown Additional Notes: Anxious Shaking Pertinent Negative: Pt denies other symptoms Recent Healthcare: Recent doctor visit, Recent hospitalization Past Medical History Past Medical History Major Depressive Disorder w/ psychotic features Hx of suicidal ideation Past Surgical History None reported. Social History Hx of alcohol, methamphetamine and narcotic abuse Drug Use: Meth Other Social History: Poor social support, From out of town ([place]), Homeless Ambulatory Status Independent Review of Systems Patient is currently seeking medication refill Full Review of Systems Constitutional: Denies: Chills, Fever Respiratory: Denies: Shortness of breath GI: Denies: Nausea, Vomiting Neurologic: Reports: Shaking, Denies: Change LOC Psychiatric: Reports: Anxiety Complete sys rev & neg: except as marked. Physical Exam Vital Signs Vital Signs Date Time Temp Pulse Resp B/P Pulse Ox O2 Delivery O2 Flow Rate FiO2 12/17/16 11:43 36.2 83 18 130/88 99 Room Air Initial VS: Reviewed Head / Eyes: Atraumatic, Normocephalic Skin: Warm, Dry, No cyanosis General/Constitutional: Awake, Alert Behavior: Positive: Anxious, Tearful ENT: Atraumatic, Airway patent Left Ear / Mastoid: Positive: External canal red, Negative: Tympanic membrane bulging, Tympanic membrane red Respiratory / Chest: Atraumatic, No respiratory distress Abdomen: Atraumatic Upper Extremities Upper Extremity / MS: Atraumatic, Neurologic intact, Vascular intact Lower Extremity / Pelvis / MS: Atraumatic, Neurologic intact, Vascular intact Psychiatric: Not suicidal, Not homicidal Abnormal Mood/Affect: Positive: Anxious Re-Eval/Medical Decision Med Decision/Clinical Course 41-year-old female history of depression with psychotic features recently discharged from psychiatric inpatient. She reports persistent depression and issues waiting for her ride which is 4 hours away and she is unable to get to the pharmacy to get her medications that knee she needs to get in [place]. She is requesting her home meds for anxiety and depression which include olanzapine, clonazepam, antidepressant. She has no SI or HI. I have given her her home medications discharged her home with plans to follow up with her primary doctor. Time of Eval: 12:07 Patient Status: Condition improved Re-Evaluation/Progress Note: Patient is rechecked. All of the patient's questions are addressed. She understands and agrees with the treatment plan. Counseled Regarding: Diagnosis, Need for follow-up, When/why to return to ED Discharge & Departure Primary Impression: Depression Depression Type: unspecified Qualified Code: F32.9 - Major depressive disorder, single episode, unspecified Additional Impressions: Anxiety Otitis externa Otitis externa type: unspecified type Laterality: left Chronicity: unspecified Qualified Code: H60.92 - Unspecified otitis externa, left ear Disposition: Home Discharge Condition All VS Reviewed: Yes Condition: Stable Patient Instructions: Major Depression (DC), Otitis Externa (ED) Additional Instructions: Thank you for trusting us with your care this morning. Please take Ciprodex, clonazepam, olanzapine and lorazepam as directed. Schedule a follow up appointment with your primary care physician in the next 1- 2 days for a recheck. Please return to the emergency department for any new or worsening symptoms including difficultly breathing, chest pain, thoughts of harming yourself or others. Referrals: NOPCP (PCP) [facility] Scribe Attestation Portions of this note were transcribed by Pavel Alexander. I, Dr. Gibson personally performed the history, physical exam and medical decision-making; I reviewed and confirmed the accuracy of the information in the transcribed note. Signed by: Kedar Shaw, 12/17/16 1230. Ramsey Gibson MD Dec 17, 2016 11:37 PAVEL ALEXANDER Dec 17, 2016 11:48
[2016-12-17 11:43] VITALS: BP 130/88; PULSE 83; RESP 18; O2SAT 99
[2016-12-17] MEDS ORDERED: CIPRODEX AFFECT_EAR (12:21)
== END 2016-12-17 12:28 | disposition home or self-care (01) ==
LOC: SED 11:34
DX: F32.3 Major depressive disorder, single episode, severe with psychotic features (principal); F41.9 Anxiety disorder, unspecified; H60.92 Unspecified otitis externa, left ear; F19.20 Other psychoactive substance dependence, uncomplicated; Z76.0 Encounter for issue of repeat prescription; Z91.5 Personal history of self-harm; Z59.0 Homelessness

== ENCOUNTER 2016-12-17 17:34 | Emergency (ER) | payer MEDICAID ==
[~2016-12-17] VITALS: Ht 161.3 cm; Wt 50.5 kg
[~2016-12-17 17:34] MED LIST changes: +CIPRODEX AFFECT_EAR
[2016-12-17 17:47] VITALS: BP 134/87; PULSE 90; RESP 16; O2SAT 99
== END 2016-12-17 18:25 | disposition left against medical advice (07) ==
LOC: SED 17:34
DX: Z53.21 Procedure and treatment not carried out due to patient leaving prior to being seen by health care provider (principal)